=== PATIENT | male | born 1955 | race Caucasian/White ===

== ENCOUNTER 2018-02-11 05:51 | Emergency (ER) | payer BC ==
[~2018-02-11] VITALS: Ht 180.3 cm; Wt 83.9 kg
[2018-02-11 06:38] LABS: BASOPHILS # (AUTO) 0.1 (0.0-0.1); BASOPHILS % 1.1 % (0.0-1.0); EOSINOPHILS # (AUTO) 0.4 (0.0-0.4); EOSINOPHILS % 7.4 % (0.0-6.0); HEMATOCRIT 34.5 % (38.2-49.6); HEMOGLOBIN 11.5 g/dL (14.0-18.0); LYMPHOCYTES # (AUTO) 1.7 (1.0-3.2); LYMPHOCYTES % 31.1 % (18.0-39.1); MEAN CORPUSCULAR HEMOGLOBIN 29.5 pg (28-32); MEAN CORPUSCULAR HGB CONC 33.3 g/dL (31-35); MEAN CORPUSCULAR VOLUME 88.5 fL (81-99); MONOCYTES # (AUTO) 0.8 (0.2-0.8); MONOCYTES % 14.7 % (4.4-11.3); NEUTROPHILS # (AUTO) 2.5 (2.1-6.9); NEUTROPHILS % 45.3 % (38.7-80.0); PLATELET COUNT 182 x10e3/uL (140-360); RED CELL DISTRIBUTION WIDTH 13.2 % (11.7-14.4)
[2018-02-11 06:48] LABS: BLOOD UREA NITROGEN 23 mg/dL (7-26); BUN/CREATININE RATIO 21 (6-25); CALCIUM 9.3 mg/dL (8.4-10.2); CARBON DIOXIDE 27 mmol/L (22-29); CHLORIDE 107 mmol/L (98-107); CREATININE, SERUM 1.08 mg/dL (0.72-1.25); EST GLOMERULAR FILTRATION RATE > 60 ML/MIN (60-); GLUCOSE 98 mg/dL (74-118); SODIUM 142 mmol/L (136-145)
[2018-02-11 07:03] VITALS: BP 136/74
== END 2018-02-11 07:10 | disposition home or self-care (01) ==
LOC: ER 05:51
DX: E87.5 Hyperkalemia (principal); E11.9 Type 2 diabetes mellitus without complications; I25.10 Atherosclerotic heart disease of native coronary artery without angina pectoris; Z95.5 Presence of coronary angioplasty implant and graft; E78.5 Hyperlipidemia, unspecified
CPT/HCPCS: 36415; 80048; 85025; 93005; 99283

== ENCOUNTER → 2020-04-28 | Day surgery (SDC) | payer BC, OTHER ==
[2020-04-25 11:40] LABS: BASOPHILS # (AUTO) 0.1 (0.0-0.1); BASOPHILS % 0.7 % (0.0-1.0); EOSINOPHILS # (AUTO) 0.1 (0.0-0.4); EOSINOPHILS % 1.5 % (0.0-6.0); HEMATOCRIT 36.2 % (38.2-49.6); HEMOGLOBIN 11.5 g/dL (14.0-18.0); LYMPHOCYTES # (AUTO) 2.2 (1.0-3.2); MEAN CORPUSCULAR HEMOGLOBIN 27.8 pg (28-32); MEAN CORPUSCULAR HGB CONC 31.8 g/dL (31-35); MEAN CORPUSCULAR VOLUME 87.4 fL (81-99); MONOCYTES # (AUTO) 0.8 (0.2-0.8); MONOCYTES % 9.8 % (4.4-11.3); NEUTROPHILS # (AUTO) 5.2 (2.1-6.9); NEUTROPHILS % 61.6 % (38.7-80.0); PLATELET COUNT 177 x10e3/uL (140-360); RED BLOOD COUNT 4.14 x10e6/uL (4.3-5.7); RED CELL DISTRIBUTION WIDTH 14.4 % (11.7-14.4)
[~2020-04-28] MED LIST: ASPIRIN81 MG PO; ATORVASTATIN CA20 MG PO; FENTANYL CITRATE/PF 100MCG/2 ML INJ ONE; HYOSCYAMINE 0.125 MG TAB ONE; KETAMINE HCL INJ 50 MG/ML 10 ML VIAL ONE; LEVEMIR FL100 UNIT/1 SC; LOSARTAN POTASS25 MG PO; METFORMIN HCL500 MG PO; MIDAZOLAM HCL 2 MG/2 ML VIAL ONE; PROPOFOL IV EMULSION 10 MG/ML 20 ML VIAL ONE
[2020-04-28 15:05] VITALS: BP 128/79
--- NOTE | 2020-04-28 16:30 | Operative Report ---
DATE OF PROCEDURE: 04/28/2020 SURGEON: Adrian Atwood MD PROCEDURES: EGD with esophageal dilatation and biopsies, and a colonoscopy with polypectomy note. INDICATIONS FOR EGD: Dysphagia. INDICATIONS FOR COLONOSCOPY: Surveillance colonoscopy, personal history of colon polyps. MEDICATIONS: The patient was done under MAC, please see anesthesiologist's note. PROCEDURE IN DETAIL: With the patient in left lateral decubitus position, a flexible fiberoptic Olympus gastroscope was introduced into the esophagus under direct visualization without any difficulty. There was some patchy erythema noted in distal esophagus. Esophagus was dilated to size 52-Romanian Koch. The scope was then advanced with ease into the stomach and mucosa overlying the antrum and the body revealed some patchy erythema and low-grade to moderate edema, and biopsies were obtained, sent to stain for H. pylori. The pylorus was of normal contour and shape, it was intubated with ease and the scope was advanced all the way to the second portion of the duodenum. Biopsies were obtained from the minute nodule noted in the proximal second portion. The scope was then withdrawn back into the stomach and retroflexed, mucosa overlying the fundus and cardia appeared to be within normal limits. The scope was then straightened out, it was subsequently withdrawn. The patient tolerated the procedure well. IMPRESSION: 1. Mild distal esophagitis. 2. Esophagus dilated to size 52-Romanian Koch. 3. Gastritis, biopsied, biopsies sent to stain for H. pylori. 4. Duodenal nodule, proximal second portion, biopsied. PLAN: 1. Follow up histology. 2. Initiate Protonix 40 mg one p.o. q.a.m. a.c. DESCRIPTION OF PROCEDURE: The patient was then turned around after adequate lubrication of the anal canal, a flexible fiberoptic Olympus colonoscope was inserted into the rectum with ease and advanced all the way to the cecum. An approximately 4 mm sessile polyp was removed per cold snare polypectomy from the cecum. An additional polyp approximately 3 mm was removed per the cold biopsy forceps from the ascending colon. The rest of the ascending, transverse, descending, sigmoid, and rectum appeared to be within normal limits. The exam was suboptimal. The patient was somewhat restless during the procedure. The scope was then retroflexed into the distal rectum. Small internal hemorrhoids were noted, none of which was actively bleeding. The scope was then straightened out, it was subsequently withdrawn. The patient tolerated the procedure well. IMPRESSION: 1. Cecal polyp, cold snared. 2. Ascending colon polyp, cold biopsied. 3. Internal hemorrhoids, none actively bleeding. PLAN: 1. Follow up histology. 2. Initiate high-fiber, low-fat diet. 3. Initiate high-fiber supplement. 4. The patient might benefit from a followup colonoscopy in 3 years. Adrian Atwood MD [facility] [place][id number] cc: Alannah Hayward MD
== END | disposition home or self-care (01) ==
LOC: OR 08:16
PROVIDERS: ATTEND Internal Medicine Gastroenterology
DX: K59.09 Other constipation (principal); D12.0 Benign neoplasm of cecum; D12.2 Benign neoplasm of ascending colon; K29.50 Unspecified chronic gastritis without bleeding; K20.9 Esophagitis, unspecified; K21.9 Gastro-esophageal reflux disease without esophagitis; K31.89 Other diseases of stomach and duodenum; K64.8 Other hemorrhoids; E11.9 Type 2 diabetes mellitus without complications; I11.0 Hypertensive heart disease with heart failure; I50.9 Heart failure, unspecified; Z01.812 Encounter for preprocedural laboratory examination; Z11.59 Encounter for screening for other viral diseases; Z79.84 Long term (current) use of oral hypoglycemic drugs; Z79.82 Long term (current) use of aspirin; Z79.4 Long term (current) use of insulin; Z95.5 Presence of coronary angioplasty implant and graft; Z95.810 Presence of automatic (implantable) cardiac defibrillator; Z87.891 Personal history of nicotine dependence; Z89.429 Acquired absence of other toe(s), unspecified side
CPT/HCPCS: 36415 ×2; 43239; 43450; 45380; 45385; 82948; 85025; 87635; J2250; J2704; J3010; 45378

== ENCOUNTER → 2021-11-20 | Outpatient (CLI) | payer OTHER ==
[~2021-11-20] MED LIST changes: +CEPHALEXIN500 MG PO; -FENTANYL CITRATE/PF 100MCG/2 ML INJ ONE; -HYOSCYAMINE 0.125 MG TAB ONE; -KETAMINE HCL INJ 50 MG/ML 10 ML VIAL ONE; +LANTUS 3ML100 UNITS/ SC; -MIDAZOLAM HCL 2 MG/2 ML VIAL ONE; -PROPOFOL IV EMULSION 10 MG/ML 20 ML VIAL ONE
== END ==
LOC: RAD 13:20
PROVIDERS: ATTEND Internal Medicine
DX: M79.671 Pain in right foot (principal); M86.8X7 Other osteomyelitis, ankle and foot

== ENCOUNTER 2021-11-21 09:43 | Inpatient (IN) | payer BC, OTHER ==
[~2021-11-21] VITALS: Ht 180.3 cm; Wt 83.9 kg
[~2021-11-21 09:43] MED LIST changes: -CEPHALEXIN500 MG PO; -LANTUS 3ML100 UNITS/ SC
[2021-11-21] MEDS ORDERED: SODIUM CHLORIDE 0.9% 1000ML 1,000 ML IV STA (09:50)
[2021-11-21] MEDS ORDERED: Vancomycin IV 1 GM in SODIUM CHLORIDE 0.9% 250ML 250 ML IV STA (09:50)
[2021-11-21] MEDS ORDERED: PIPERACILLIN/TAZOBACTAM 3.375 GM in SODIUM CHLORIDE 0.9% 50ML 50 ML IV STA (09:50)
[2021-11-21 10:26] LABS: BASOPHILS # (AUTO) 0.1 (0.0-0.1); BASOPHILS % 0.9 % (0.0-1.0); EOSINOPHILS # (AUTO) 0.2 (0.0-0.4); EOSINOPHILS % 2.2 % (0.0-6.0); HEMATOCRIT 37.1 % (38.2-49.6); LYMPHOCYTES # (AUTO) 1.8 (1.0-3.2); LYMPHOCYTES % 23.7 % (18.0-39.1); MEAN CORPUSCULAR HEMOGLOBIN 28.7 pg (28-32); MEAN CORPUSCULAR HGB CONC 32.3 g/dL (31-35); MEAN CORPUSCULAR VOLUME 88.8 fL (81-99); MONOCYTES # (AUTO) 0.8 (0.2-0.8); MONOCYTES % 9.8 % (4.4-11.3); NEUTROPHILS # (AUTO) 4.9 (2.1-6.9); PLATELET COUNT 292 x10e3/uL (140-360); RED BLOOD COUNT 4.18 x10e6/uL (4.3-5.7); RED CELL DISTRIBUTION WIDTH 12.9 % (11.7-14.4)
[2021-11-21] MEDS ORDERED: CEPHALEXIN500 MG PO (10:32)
[2021-11-21] MEDS ORDERED: LANTUS 3ML100 UNITS/ SC (10:33)
[2021-11-21 10:41] LABS: INR 0.89; PROTHROMBIN TIME 12.7 seconds (11.9-14.5)
[2021-11-21 10:42] LABS: PARTIAL THROMBOPLASTIN TIME 28.6 seconds (23.8-35.5)
[2021-11-21] MEDS ORDERED: LEVEMIR FL100 UNIT/1 SC (10:42)
[2021-11-21 10:47] LABS: ALBUMIN 3.8 g/dL (3.5-5.0); ALBUMIN/GLOBULIN RATIO 0.9 (0.8-2.0); ANION GAP 13.5 mmol/L (8-16); CALCIUM 10.2 mg/dL (8.4-10.2); CREATININE, SERUM 0.99 mg/dL (0.72-1.25); POTASSIUM 4.5 mmol/L (3.5-5.1)
[2021-11-21] MEDS ORDERED: ACETAMINOPHEN 325 MG TAB PO PRN (11:00)
[2021-11-21] MEDS ORDERED: ONDANSETRON HCL INJ 2MG/ML 2ML 2 MG/ML VIAL IV PRN (11:00)
[2021-11-21] MEDS ORDERED: SODIUM CHLORIDE 0.9% 1000ML 1,000 ML IV SCH (11:00)
[2021-11-21] MEDS ORDERED: DEXTROSE 50% SYRINGE 50 ML IV PRN ×4 (16:00)
[2021-11-21] MEDS ORDERED: LOSARTAN POTASSIUM 25 MG TAB PO SCH ×3 (16:00→21:00)
[2021-11-21] MEDS ORDERED: CLONIDINE HCL 0.1 MG TAB PO PRN ×4 (16:00)
[2021-11-21] MEDS: INSULIN LISPRO 100 UNIT/1 ML 3ML VIAL SQ SCH ×2 (16:23→21:24)
[2021-11-21] MEDS: LOSARTAN POTASSIUM 25 MG TAB PO SCH ×2 (16:27→21:22)
[2021-11-21] MEDS: CLINDAMYCIN PHOS 900MG/ 50ML 50 ML IV SCH (16:27)
[2021-11-21] MEDS ORDERED: INSULIN LISPRO 100 UNIT/1 ML 3ML VIAL SQ SCH ×3 (16:30)
[2021-11-21] MEDS ORDERED: LIDOCAINE HCL 1% LOCAL INJ 20 ML VIAL INJ ONE (18:35)
[2021-11-21 18:50] VITALS: BP 202/112
[2021-11-21 20:00] VITALS: BP 138/80
[2021-11-21 20:55] VITALS: BP 138/80
[2021-11-21] MEDS ORDERED: ASPIRIN 81 MG CHEW TAB PO SCH ×3 (21:00)
[2021-11-21] MEDS: MUPIROCIN 2% OINT 22 GM TUBE TOP SCH (21:21)
[2021-11-21] MEDS: ASPIRIN 81 MG CHEW TAB PO SCH (21:22)
[2021-11-22] VITALS (8 sets, daily range): BP systolic 129–156; BP diastolic 67–89
[2021-11-22] MEDS: CLINDAMYCIN PHOS 900MG/ 50ML 50 ML IV SCH ×3 (02:11→17:05)
[2021-11-22] MEDS ORDERED: LIDOCAINE HCL 1% LOCAL INJ 20 ML VIAL INJ ONE (08:00)
[2021-11-22] MEDS: INSULIN LISPRO 100 UNIT/1 ML 3ML VIAL SQ SCH ×4 (08:20→22:06)
[2021-11-22] MEDS: MUPIROCIN 2% OINT 22 GM TUBE TOP SCH (08:35)
[2021-11-22] MEDS: ATORVASTATIN 20 MG TAB PO SCH (08:37)
[2021-11-22] MEDS ORDERED: ATORVASTATIN 20 MG TAB PO SCH ×3 (09:00)
[2021-11-22] MEDS: ASPIRIN 81 MG CHEW TAB PO SCH (21:51)
[2021-11-22] MEDS: LOSARTAN POTASSIUM 25 MG TAB PO SCH (21:51)
[2021-11-23] VITALS (7 sets, daily range): BP systolic 126–179; BP diastolic 70–94
[2021-11-23] MEDS: CLINDAMYCIN PHOS 900MG/ 50ML 50 ML IV SCH ×3 (02:24→16:51)
[2021-11-23 05:07] LABS: HEMOGLOBIN 11.3 g/dL (14.0-18.0); MEAN CORPUSCULAR HEMOGLOBIN 27.9 pg (28-32); MEAN CORPUSCULAR HGB CONC 30.5 g/dL (31-35); MEAN CORPUSCULAR VOLUME 91.4 fL (81-99); PLATELET COUNT 270 x10e3/uL (140-360); RED BLOOD COUNT 4.05 x10e6/uL (4.3-5.7); RED CELL DISTRIBUTION WIDTH 12.9 % (11.7-14.4)
[2021-11-23 05:59] LABS: ANION GAP 13.2 mmol/L (8-16); CALCIUM 9.2 mg/dL (8.4-10.2); CREATININE, SERUM 1.16 mg/dL (0.72-1.25); POTASSIUM 4.2 mmol/L (3.5-5.1)
[2021-11-23] MEDS: ATORVASTATIN 20 MG TAB PO SCH (09:12)
[2021-11-23] MEDS: MUPIROCIN 2% OINT 22 GM TUBE TOP SCH (09:13)
[2021-11-23] MEDS: INSULIN LISPRO 100 UNIT/1 ML 3ML VIAL SQ SCH ×4 (10:00→21:00)
[2021-11-23 12:04] LABS: EOSINOPHILS % (MANUAL) 1 % (0-7); LYMPHOCYTES % (MANUAL) 22 % (19-48); MONOCYTES % (MANUAL) 8 % (3.4-9.0); NEUTROPHILS % (MANUAL) 67 % (40-74)
[2021-11-23 12:05] LABS: PLATELET ESTIMATE ADEQUATE; PLATELET MORPHOLOGY COMMENT NORMAL; RBC MORPHOLOGY COMMENT NORMAL
[2021-11-23] MEDS ORDERED: LACTULOSE SYRUP 20 GM/30 ML UDC PO PRN (15:30)
[2021-11-23] MEDS: ASPIRIN 81 MG CHEW TAB PO SCH (21:00)
[2021-11-23] MEDS: LOSARTAN POTASSIUM 25 MG TAB PO SCH (21:00)
[2021-11-24] VITALS (8 sets, daily range): BP systolic 118–156; BP diastolic 75–96
[2021-11-24] MEDS: CLINDAMYCIN PHOS 900MG/ 50ML 50 ML IV SCH ×3 (02:05→21:48)
[2021-11-24 07:02] LABS: HEMATOCRIT 36.3 % (38.2-49.6); HEMOGLOBIN 11.5 g/dL (14.0-18.0); MEAN CORPUSCULAR HEMOGLOBIN 28.2 pg (28-32); MEAN CORPUSCULAR HGB CONC 31.7 g/dL (31-35); PLATELET COUNT 270 x10e3/uL (140-360); RED BLOOD COUNT 4.08 x10e6/uL (4.3-5.7); RED CELL DISTRIBUTION WIDTH 12.9 % (11.7-14.4)
[2021-11-24 07:23] LABS: ANION GAP 14.3 mmol/L (8-16); CALCIUM 9.1 mg/dL (8.4-10.2); CREATININE, SERUM 1.05 mg/dL (0.72-1.25); POTASSIUM 4.3 mmol/L (3.5-5.1)
[2021-11-24] MEDS: MUPIROCIN 2% OINT 22 GM TUBE TOP SCH (08:26)
[2021-11-24] MEDS: ATORVASTATIN 20 MG TAB PO SCH (08:26)
[2021-11-24] MEDS: INSULIN LISPRO 100 UNIT/1 ML 3ML VIAL SQ SCH ×4 (08:45→21:54)
[2021-11-24] MEDS: DOCUSATE SODIUM 100 MG CAP PO SCH (12:00)
[2021-11-24] MEDS: SENNOSIDES 8.6 MG TAB PO SCH (12:00)
[2021-11-24] MEDS: POLYETHYLENE GLYCOL 3350 17 GM PACK PO SCH ×2 (12:00→16:44)
[2021-11-24] MEDS ORDERED: LOSARTAN POTASSIUM 100 MG TAB PO SCH (21:00)
[2021-11-24] MEDS: ASPIRIN 81 MG CHEW TAB PO SCH (21:48)
[2021-11-24] MEDS: INSULIN GLARGINE 100 UNITS/ML VIAL SQ SCH (21:53)
[2021-11-25] VITALS (8 sets, daily range): BP systolic 119–147; BP diastolic 68–98
[2021-11-25] MEDS: CLINDAMYCIN PHOS 900MG/ 50ML 50 ML IV SCH ×3 (01:57→17:13)
[2021-11-25 06:24] LABS: BASOPHILS # (AUTO) 0.1 (0.0-0.1); BASOPHILS % 1.1 % (0.0-1.0); EOSINOPHILS # (AUTO) 0.2 (0.0-0.4); EOSINOPHILS % 3.2 % (0.0-6.0); HEMATOCRIT 37.1 % (38.2-49.6); HEMOGLOBIN 11.5 g/dL (14.0-18.0); LYMPHOCYTES # (AUTO) 1.9 (1.0-3.2); LYMPHOCYTES % 29.2 % (18.0-39.1); MEAN CORPUSCULAR HEMOGLOBIN 28.1 pg (28-32); MEAN CORPUSCULAR VOLUME 90.7 fL (81-99); MONOCYTES # (AUTO) 0.8 (0.2-0.8); MONOCYTES % 12.3 % (4.4-11.3); NEUTROPHILS # (AUTO) 3.4 (2.1-6.9); NEUTROPHILS % 53.9 % (38.7-80.0); PLATELET COUNT 280 x10e3/uL (140-360); RED BLOOD COUNT 4.09 x10e6/uL (4.3-5.7)
[2021-11-25 06:48] LABS: ANION GAP 12.3 mmol/L (8-16); CALCIUM 9.8 mg/dL (8.4-10.2); CREATININE, SERUM 1.09 mg/dL (0.72-1.25); POTASSIUM 4.3 mmol/L (3.5-5.1)
[2021-11-25] MEDS: INSULIN LISPRO 100 UNIT/1 ML 3ML VIAL SQ SCH ×4 (07:30→20:41)
[2021-11-25] MEDS: MUPIROCIN 2% OINT 22 GM TUBE TOP SCH (09:00)
[2021-11-25] MEDS: SENNOSIDES 8.6 MG TAB PO SCH (09:00)
[2021-11-25] MEDS: DOCUSATE SODIUM 100 MG CAP PO SCH (09:00)
[2021-11-25] MEDS: ATORVASTATIN 20 MG TAB PO SCH (09:00)
[2021-11-25] MEDS: POLYETHYLENE GLYCOL 3350 17 GM PACK PO SCH ×2 (09:00→17:07)
[2021-11-25] MEDS ORDERED: BISACODYL 10 MG SUPP PR NR (15:30)
[2021-11-25] MEDS ORDERED: BISACODYL 10 MG SUPP PR ONE (19:06)
[2021-11-25] MEDS: LOSARTAN POTASSIUM 25 MG TAB PO SCH (20:41)
[2021-11-25] MEDS: ASPIRIN 81 MG CHEW TAB PO SCH (20:41)
[2021-11-25] MEDS: INSULIN GLARGINE 100 UNITS/ML VIAL SQ SCH (20:41)
[2021-11-26 00:47] VITALS: BP 125/76
[2021-11-26] MEDS: CLINDAMYCIN PHOS 900MG/ 50ML 50 ML IV SCH ×3 (01:55→17:43)
[2021-11-26 05:07] VITALS: BP 130/78
[2021-11-26 06:12] LABS: CALCIUM 9.9 mg/dL (8.4-10.2); CREATININE, SERUM 1.17 mg/dL (0.72-1.25)
[2021-11-26 06:50] LABS: BASOPHILS # (AUTO) 0.1 (0.0-0.1); BASOPHILS % 1.2 % (0.0-1.0); EOSINOPHILS # (AUTO) 0.2 (0.0-0.4); EOSINOPHILS % 2.9 % (0.0-6.0); HEMATOCRIT 42.6 % (38.2-49.6); HEMOGLOBIN 13.4 g/dL (14.0-18.0); LYMPHOCYTES # (AUTO) 1.9 (1.0-3.2); LYMPHOCYTES % 27.1 % (18.0-39.1); MEAN CORPUSCULAR HEMOGLOBIN 27.9 pg (28-32); MEAN CORPUSCULAR HGB CONC 31.5 g/dL (31-35); MEAN CORPUSCULAR VOLUME 88.8 fL (81-99); MONOCYTES # (AUTO) 0.8 (0.2-0.8); MONOCYTES % 11.1 % (4.4-11.3); NEUTROPHILS # (AUTO) 3.9 (2.1-6.9); NEUTROPHILS % 57.3 % (38.7-80.0); PLATELET COUNT 313 x10e3/uL (140-360); RED CELL DISTRIBUTION WIDTH 13.1 % (11.7-14.4)
[2021-11-26] MEDS: INSULIN LISPRO 100 UNIT/1 ML 3ML VIAL SQ SCH ×4 (07:30→21:56)
[2021-11-26 08:00] VITALS: BP 137/86
[2021-11-26] MEDS: POLYETHYLENE GLYCOL 3350 17 GM PACK PO SCH ×2 (09:00→16:37)
[2021-11-26] MEDS: MUPIROCIN 2% OINT 22 GM TUBE TOP SCH (09:00)
[2021-11-26] MEDS: SENNOSIDES 8.6 MG TAB PO SCH (09:00)
[2021-11-26] MEDS: DOCUSATE SODIUM 100 MG CAP PO SCH (09:00)
[2021-11-26] MEDS: ATORVASTATIN 20 MG TAB PO SCH (09:00)
[2021-11-26 16:00] VITALS: BP 130/80
[2021-11-26 20:40] VITALS: BP 149/99
[2021-11-26 20:50] VITALS: BP 149/99
[2021-11-26] MEDS: LOSARTAN POTASSIUM 25 MG TAB PO SCH (21:55)
[2021-11-26] MEDS: ASPIRIN 81 MG CHEW TAB PO SCH (21:55)
[2021-11-26] MEDS: INSULIN GLARGINE 100 UNITS/ML VIAL SQ SCH (21:56)
[2021-11-27] VITALS (9 sets, daily range): BP systolic 98–145; BP diastolic 51–95
[2021-11-27] MEDS: CLINDAMYCIN PHOS 900MG/ 50ML 50 ML IV SCH ×3 (01:17→17:41)
[2021-11-27 05:07] LABS: HEMATOCRIT 37.1 % (38.2-49.6); HEMOGLOBIN 11.5 g/dL (14.0-18.0); MEAN CORPUSCULAR VOLUME 90.3 fL (81-99); PLATELET COUNT 271 x10e3/uL (140-360); RED BLOOD COUNT 4.11 x10e6/uL (4.3-5.7); RED CELL DISTRIBUTION WIDTH 13.1 % (11.7-14.4)
[2021-11-27 05:27] LABS: ANION GAP 14.7 mmol/L (8-16); CALCIUM 9.4 mg/dL (8.4-10.2); CREATININE, SERUM 1.26 mg/dL (0.72-1.25); POTASSIUM 4.7 mmol/L (3.5-5.1)
[2021-11-27 07:25] LABS: EOSINOPHILS % (MANUAL) 2 % (0-7); LYMPHOCYTES % (MANUAL) 37 % (19-48); MONOCYTES % (MANUAL) 5 % (3.4-9.0); NEUTROPHILS % (MANUAL) 52 % (40-74)
[2021-11-27 07:26] LABS: PLATELET ESTIMATE ADEQUATE; PLATELET MORPHOLOGY COMMENT NORMAL; RBC MORPHOLOGY COMMENT NORMAL
[2021-11-27] MEDS: INSULIN LISPRO 100 UNIT/1 ML 3ML VIAL SQ SCH ×4 (07:30→20:57)
[2021-11-27] MEDS: SENNOSIDES 8.6 MG TAB PO SCH (08:20)
[2021-11-27] MEDS: DOCUSATE SODIUM 100 MG CAP PO SCH (08:20)
[2021-11-27] MEDS: ATORVASTATIN 20 MG TAB PO SCH (08:20)
[2021-11-27] MEDS: POLYETHYLENE GLYCOL 3350 17 GM PACK PO SCH ×2 (08:20→17:00)
[2021-11-27] MEDS: MUPIROCIN 2% OINT 22 GM TUBE TOP SCH (14:22)
[2021-11-27] MEDS: ASPIRIN 81 MG CHEW TAB PO SCH (20:56)
[2021-11-27] MEDS: LOSARTAN POTASSIUM 25 MG TAB PO SCH (20:57)
[2021-11-27] MEDS: INSULIN GLARGINE 100 UNITS/ML VIAL SQ SCH (20:58)
[2021-11-28] VITALS (7 sets, daily range): BP systolic 115–145; BP diastolic 73–88
[2021-11-28] MEDS: CLINDAMYCIN PHOS 900MG/ 50ML 50 ML IV SCH ×3 (01:21→16:49)
[2021-11-28] MEDS: INSULIN LISPRO 100 UNIT/1 ML 3ML VIAL SQ SCH ×4 (07:30→20:38)
[2021-11-28] MEDS: DOCUSATE SODIUM 100 MG CAP PO SCH (08:39)
[2021-11-28] MEDS: ATORVASTATIN 20 MG TAB PO SCH (08:39)
[2021-11-28] MEDS: SENNOSIDES 8.6 MG TAB PO SCH (08:39)
[2021-11-28] MEDS: POLYETHYLENE GLYCOL 3350 17 GM PACK PO SCH ×2 (08:39→16:41)
[2021-11-28] MEDS: MUPIROCIN 2% OINT 22 GM TUBE TOP SCH (08:40)
[2021-11-28] MEDS ORDERED: ONDANSETRON HCL 4 MG ORAL DISINTEGRATING TAB PO PRN (13:45)
[2021-11-28] MEDS: LOSARTAN POTASSIUM 25 MG TAB PO SCH (20:28)
[2021-11-28] MEDS: ASPIRIN 81 MG CHEW TAB PO SCH (20:28)
[2021-11-28] MEDS: INSULIN GLARGINE 100 UNITS/ML VIAL SQ SCH (20:28)
[2021-11-29] VITALS: BP 150/88
[2021-11-29] MEDS: CLINDAMYCIN PHOS 900MG/ 50ML 50 ML IV SCH ×2 (01:41→12:22)
[2021-11-29 04:15] VITALS: BP 130/75
[2021-11-29] MEDS: INSULIN LISPRO 100 UNIT/1 ML 3ML VIAL SQ SCH ×2 (07:30→11:30)
[2021-11-29] MEDS: POLYETHYLENE GLYCOL 3350 17 GM PACK PO SCH (07:43)
[2021-11-29 08:09] VITALS: BP 95/65
[2021-11-29 08:52] VITALS: BP 95/65
[2021-11-29] MEDS ORDERED: SODIUM CHLORIDE 0.9% 250ML 250 ML ONE (09:56)
[2021-11-29] MEDS ORDERED: LIDOCAINE HCL 1% LOCAL INJ 20 ML VIAL ONE (09:56)
[2021-11-29] MEDS ORDERED: FENTANYL CITRATE/PF 100MCG/2 ML INJ ONE (10:25)
[2021-11-29] MEDS ORDERED: MIDAZOLAM HCL 2 MG/2 ML VIAL ONE (10:25)
[2021-11-29 12:17] VITALS: BP 134/85
[2021-11-29] MEDS: DOCUSATE SODIUM 100 MG CAP PO SCH (12:21)
[2021-11-29] MEDS: ATORVASTATIN 20 MG TAB PO SCH (12:22)
[2021-11-29] MEDS: SENNOSIDES 8.6 MG TAB PO SCH (12:22)
== END 2021-11-29 14:49 | disposition home or self-care (01) | DRG 623 ==
LOC: ER 09:49 → ERHOLD 10:55 → MED/SURG2 14:26
PROVIDERS: ADMIT Internal Medicine; ATTEND Internal Medicine
PROC: 0QBL0ZZ Excision of Right Tarsal, Open Approach (ICD-10-PCS; 2021-11-22)
PROC: 0JBQ0ZZ Excision of Right Foot Subcutaneous Tissue and Fascia, Open Approach (ICD-10-PCS; 2021-11-24)
PROC: 0JBQ0ZZ Excision of Right Foot Subcutaneous Tissue and Fascia, Open Approach (ICD-10-PCS; principal; 2021-11-26)
PROC: 02HV33Z Insertion of Infusion Device into Superior Vena Cava, Percutaneous Approach (ICD-10-PCS; 2021-11-29)
PROC: 0JH63XZ Insertion of Tunneled Vascular Access Device into Chest Subcutaneous Tissue and Fascia, Percutaneous Approach (ICD-10-PCS; 2021-11-29)
DX: E11.69 Type 2 diabetes mellitus with other specified complication (principal); M86.8X7 Other osteomyelitis, ankle and foot; L03.115 Cellulitis of right lower limb; L97.516 Non-pressure chronic ulcer of other part of right foot with bone involvement without evidence of necrosis; M00.871 Arthritis due to other bacteria, right ankle and foot; Z79.899 Other long term (current) drug therapy; E11.40 Type 2 diabetes mellitus with diabetic neuropathy, unspecified; I10 Essential (primary) hypertension; E11.65 Type 2 diabetes mellitus with hyperglycemia; E11.628 Type 2 diabetes mellitus with other skin complications; I25.10 Atherosclerotic heart disease of native coronary artery without angina pectoris; E78.5 Hyperlipidemia, unspecified; Z20.822 Contact with and (suspected) exposure to COVID-19; E11.621 Type 2 diabetes mellitus with foot ulcer; B95.61 Methicillin susceptible Staphylococcus aureus infection as the cause of diseases classified elsewhere; B96.89 Other specified bacterial agents as the cause of diseases classified elsewhere; E11.51 Type 2 diabetes mellitus with diabetic peripheral angiopathy without gangrene
CPT/HCPCS: 36415; 36558; 36569; 71045; 74470; 76937; 77001; 80048; 80053; 82948; 83036; 83735; 85007; 85025; 85027; 85610; 85730; 86850; 86900; 87040; 87071; 87075; 87205; 94799; 96372; 99152; 99153; 99284; J1815; J2001; J2250; J2543; J3010; J3370; J7030; J7050; U0002

== ENCOUNTER → 2022-02-01 | Outpatient (CLI) | payer OTHER ==
[~2022-02-01] MED LIST changes: +CEPHALEXIN500 MG PO; +LANTUS 3ML100 UNITS/ SC
== END ==
LOC: DX 12:56
PROVIDERS: ATTEND Internal Medicine Infectious Disease
DX: M86.171 Other acute osteomyelitis, right ankle and foot (principal)
CPT/HCPCS: 36589; 71045

== ENCOUNTER → 2023-01-27 | Day surgery (SDC) | payer OTHER ==
[2023-01-23 16:10] LABS: BASOPHILS % 0.4 % (0.0-1.0); EOSINOPHILS # (AUTO) 0.1 (0.0-0.4); EOSINOPHILS % 1.9 % (0.0-6.0); HEMATOCRIT 33.9 % (38.2-49.6); LYMPHOCYTES # (AUTO) 1.5 (1.0-3.2); MEAN CORPUSCULAR HEMOGLOBIN 29.8 pg (28-32); MEAN CORPUSCULAR HGB CONC 32.4 g/dL (31-35); MEAN CORPUSCULAR VOLUME 91.9 fL (81-99); MONOCYTES % 14.5 % (4.4-11.3); NEUTROPHILS % 59.9 % (38.7-80.0); PLATELET COUNT 200 x10e3/uL (140-360); RED BLOOD COUNT 3.69 x10e6/uL (4.3-5.7); RED CELL DISTRIBUTION WIDTH 13.3 % (11.7-14.4)
[~2023-01-27] MED LIST changes: +COREG12.5 MG PO; +FENTANYL CITRATE/PF 100MCG/2 ML INJ ONE; +HYOSCYAMINE SULFATE 0.5 MG/ML INJ ONE; +LACTATED RINGER'S 1,000 ML ONE; +METOCLOPRAMIDE HCL 10 MG/2ML VIAL ONE; +MIDAZOLAM HCL 2 MG/2 ML VIAL ONE; +PROPOFOL IV EMULSION 10 MG/ML 20 ML VIAL ONE
[2023-01-27 15:30] VITALS: BP 113/70
== END | disposition home or self-care (01) ==
LOC: OR 12:28
PROVIDERS: ATTEND Internal Medicine Gastroenterology
DX: D64.89 Other specified anemias (principal); K63.5 Polyp of colon; K29.50 Unspecified chronic gastritis without bleeding; B96.81 Helicobacter pylori [H. pylori] as the cause of diseases classified elsewhere; K26.9 Duodenal ulcer, unspecified as acute or chronic, without hemorrhage or perforation; K20.90 Esophagitis, unspecified without bleeding; K44.9 Diaphragmatic hernia without obstruction or gangrene; Z71.3 Dietary counseling and surveillance; E11.9 Type 2 diabetes mellitus without complications; E78.00 Pure hypercholesterolemia, unspecified; Z01.810 Encounter for preprocedural cardiovascular examination; Z01.812 Encounter for preprocedural laboratory examination; Z79.84 Long term (current) use of oral hypoglycemic drugs; Z79.4 Long term (current) use of insulin; Z79.82 Long term (current) use of aspirin; Z68.27 Body mass index [BMI] 27.0-27.9, adult; Z86.718 Personal history of other venous thrombosis and embolism
CPT/HCPCS: 36415 ×2; 43239; 43450; 45380; 82948; 85025; 93005; C9113; J1980; J2250; J2704; J2765; J3010; J7121; 45378

== ENCOUNTER → 2023-04-10 | Outpatient (CLI) | payer MEDICARE, OTHER ==
[~2023-04-10] MED LIST changes: -FENTANYL CITRATE/PF 100MCG/2 ML INJ ONE; -HYOSCYAMINE SULFATE 0.5 MG/ML INJ ONE; -LACTATED RINGER'S 1,000 ML ONE; -METOCLOPRAMIDE HCL 10 MG/2ML VIAL ONE; -MIDAZOLAM HCL 2 MG/2 ML VIAL ONE; -PROPOFOL IV EMULSION 10 MG/ML 20 ML VIAL ONE
== END ==
LOC: RAD 14:13
PROVIDERS: ATTEND Internal Medicine
DX: R05.9 Cough, unspecified (principal)
CPT/HCPCS: 71046

== ENCOUNTER 2024-12-09 14:00 | Emergency (ER) | payer MEDICARE, OTHER ==
[~2024-12-09] VITALS: Ht 180.3 cm; Wt 83.9 kg
[2024-12-09] MEDS ORDERED: SODIUM CHLORIDE FLUSH 10 ML SYR IV PRN (14:30)
[2024-12-09 14:35] LABS: BASOPHILS # (AUTO) 0.1 (0.0-0.1); BASOPHILS % 0.4 % (0.0-1.0); EOSINOPHILS # (AUTO) 0.1 (0.0-0.4); EOSINOPHILS % 0.5 % (0.0-6.0); HEMATOCRIT 35.7 % (38.2-49.6); HEMOGLOBIN 10.7 g/dL (14.0-18.0); LYMPHOCYTES # (AUTO) 1.4 (1.0-3.2); LYMPHOCYTES % 11.2 % (18.0-39.1); MEAN CORPUSCULAR HEMOGLOBIN 24.4 pg (28-32); MEAN CORPUSCULAR VOLUME 81.3 fL (81-99); MONOCYTES # (AUTO) 1.2 (0.2-0.8); MONOCYTES % 9.8 % (4.4-11.3); NEUTROPHILS # (AUTO) 9.7 (2.1-6.9); NEUTROPHILS % 77.6 % (38.7-80.0); PLATELET COUNT 228 x10e3/uL (140-360); RED BLOOD COUNT 4.39 x10e6/uL (4.3-5.7); RED CELL DISTRIBUTION WIDTH 18.3 % (11.7-14.4); WHITE BLOOD COUNT 12.46 x10e3/uL (4.8-10.8)
[2024-12-09 14:49] LABS: ALBUMIN 3.6 g/dL (3.5-5.0); ALBUMIN/GLOBULIN RATIO 0.8 (0.8-2.0); ANION GAP 13.9 mmol/L (8-16); BILIRUBIN,TOTAL 0.7 mg/dL (0.2-1.2); CALCIUM 9.7 mg/dL (8.4-10.2); CREATININE, SERUM 1.33 mg/dL (0.72-1.25); POTASSIUM 3.9 mmol/L (3.5-5.1); TOTAL PROTEIN 8.2 g/dL (6.5-8.1)
[2024-12-09 14:54] LABS: TROPONIN I 0.021 ng/mL (0-0.300)
[2024-12-09 17:24] VITALS: PULSE 105; RESP 18; TEMP 97.5; O2SAT 100
== END 2024-12-09 17:25 | disposition home or self-care (01) ==
LOC: ER 14:08
DX: I95.9 Hypotension, unspecified (principal); R42 Dizziness and giddiness; I10 Essential (primary) hypertension; E11.9 Type 2 diabetes mellitus without complications; E78.00 Pure hypercholesterolemia, unspecified; Z95.810 Presence of automatic (implantable) cardiac defibrillator
CPT/HCPCS: 36415; 71045; 80053; 83880; 84484; 85025; 93005; 99284

== ENCOUNTER 2024-12-11 11:08 | Inpatient (IN) | payer MEDICARE, OTHER ==
[~2024-12-11] VITALS: Ht 180.3 cm; Wt 84.7 kg
[2024-12-11 11:40] LABS: BASOPHILS # (AUTO) 0.1 (0.0-0.1); BASOPHILS % 0.4 % (0.0-1.0); HEMATOCRIT 33.1 % (38.2-49.6); HEMOGLOBIN 10.2 g/dL (14.0-18.0); LYMPHOCYTES # (AUTO) 0.5 (1.0-3.2); LYMPHOCYTES % 4.3 % (18.0-39.1); MEAN CORPUSCULAR HEMOGLOBIN 24.4 pg (28-32); MEAN CORPUSCULAR HGB CONC 30.8 g/dL (31-35); MEAN CORPUSCULAR VOLUME 79.2 fL (81-99); MONOCYTES # (AUTO) 0.5 (0.2-0.8); MONOCYTES % 4.2 % (4.4-11.3); NEUTROPHILS # (AUTO) 11.3 (2.1-6.9); NEUTROPHILS % 90.6 % (38.7-80.0); PLATELET COUNT 210 x10e3/uL (140-360); RED BLOOD COUNT 4.18 x10e6/uL (4.3-5.7); RED CELL DISTRIBUTION WIDTH 18.5 % (11.7-14.4); WHITE BLOOD COUNT 12.46 x10e3/uL (4.8-10.8)
[2024-12-11 11:54] LABS: INR 1.02; PARTIAL THROMBOPLASTIN TIME 26.4 seconds (23.8-35.5)
[2024-12-11 12:03] LABS: CORONAVIRUS COVID-19 AG NEGATIVE (NEGATIVE); INFLUENZA A AG NEGATIVE (NEGATIVE); INFLUENZA B AG NEGATIVE (NEGATIVE)
[2024-12-11 12:06] LABS: ALBUMIN 3.5 g/dL (3.5-5.0); ALBUMIN/GLOBULIN RATIO 0.8 (0.8-2.0); ANION GAP 17.8 mmol/L (8-16); BILIRUBIN,TOTAL 0.8 mg/dL (0.2-1.2); CALCIUM 9.4 mg/dL (8.4-10.2); CREATININE, SERUM 1.49 mg/dL (0.72-1.25); POTASSIUM 3.8 mmol/L (3.5-5.1)
[2024-12-11 12:12] LABS: TROPONIN I 0.03 ng/mL (0-0.300)
[2024-12-11] MEDS: ONDANSETRON HCL INJ 2MG/ML 2ML 2 MG/ML VIAL IV STA (12:29)
[2024-12-11] MEDS: SODIUM CHLORIDE 0.9% 1000ML 1,000 ML IV SCH ×2 (12:30→18:41)
[2024-12-11] MEDS: ACETAMINOPHEN 1000 MG/100 ML IV STA (12:30)
[2024-12-11 12:51] LABS: BAND NEUTROPHILS % (MANUAL) 2 %; EOSINOPHILS % (MANUAL) 1 % (0-7); LYMPHOCYTES % (MANUAL) 7 % (19-48); MONOCYTES % (MANUAL) 2 % (3.4-9.0); NEUTROPHILS % (MANUAL) 88 % (40-74); PLATELET ESTIMATE ADEQUATE; PLATELET MORPHOLOGY COMMENT NORMAL
[2024-12-11 13:45] VITALS: PULSE 106; RESP 19; TEMP 99.1
[2024-12-11] MEDS: LACTATED RINGER'S 1,000 ML INJ ONE (14:30)
[2024-12-11 16:22] LABS: CLARITY,URINE HAZY (CLEAR); COLOR,URINE YELLOW (YELLOW); GLUCOSE, URINE >=1000 (NEGATIVE); LEUKOCYTE ESTERASE ,URINE NEGATIVE (NEGATIVE); NITRITE,URINE NEGATIVE (NEGATIVE); PH,URINE 5.5 (5 - 7); PROTEIN,URINE DIPSTICK 2+ (NEGATIVE)
[2024-12-11 16:23] LABS: BACTERIA,URINE FEW /HPF; BILIRUBIN,URINE NEGATIVE (NEGATIVE); EPITHELIAL CELLS,URINE FEW /LPF; KETONES,URINE TRACE (NEGATIVE); RBC,URINE 0-5 /HPF (0-5); URINE UROBILINOGEN 0.2 mg/dL (0.2 - 1); WBC,URINE (MAN) 0-5 /HPF (0-5)
[2024-12-11] MEDS ORDERED: ONDANSETRON HCL INJ 2MG/ML 2ML 2 MG/ML VIAL IV PRN (18:15)
[2024-12-11] MEDS ORDERED: Morphine 2mg Syringe 2 MG/ML SYR IV PRN (18:15)
[2024-12-11] MEDS ORDERED: DEXTROSE 50% SYRINGE 50 ML IV PRN (18:15)
[2024-12-11] MEDS: Doxycycline IV 100 MG in SODIUM CHLORIDE 0.9% 100 ML IV SCH (18:41)
[2024-12-11 20:03] VITALS: BP 173/87; PULSE 147; RESP 20; TEMP 100.9; O2SAT 98
[2024-12-11] MEDS: INSULIN LISPRO 100 UNIT/1 ML 3ML VIAL SQ SCH (21:00)
[2024-12-11 22:34] VITALS: BP 131/56; PULSE 67; RESP 18; TEMP 99.2; O2SAT 100
[2024-12-11 22:45] VITALS: BP 131/56; PULSE 67; RESP 18; TEMP 99.2; O2SAT 98
[2024-12-12] VITALS: BP 120/56; PULSE 113; RESP 20; TEMP 99.1; O2SAT 100
[2024-12-12 04:00] VITALS: BP 131/66; PULSE 93; RESP 20; TEMP 97.7; O2SAT 98
[2024-12-12 05:51] LABS: BASOPHILS # (AUTO) 0.1 (0.0-0.1); BASOPHILS % 0.3 % (0.0-1.0); HEMATOCRIT 27.3 % (38.2-49.6); HEMOGLOBIN 8.5 g/dL (14.0-18.0); LYMPHOCYTES # (AUTO) 1.5 (1.0-3.2); LYMPHOCYTES % 7.5 % (18.0-39.1); MEAN CORPUSCULAR HEMOGLOBIN 24.6 pg (28-32); MEAN CORPUSCULAR HGB CONC 31.1 g/dL (31-35); MEAN CORPUSCULAR VOLUME 79.1 fL (81-99); MONOCYTES % 10.1 % (4.4-11.3); NEUTROPHILS # (AUTO) 16.3 (2.1-6.9); NEUTROPHILS % 81.6 % (38.7-80.0); PLATELET COUNT 177 x10e3/uL (140-360); RED BLOOD COUNT 3.45 x10e6/uL (4.3-5.7); RED CELL DISTRIBUTION WIDTH 18.7 % (11.7-14.4); WHITE BLOOD COUNT 20.04 x10e3/uL (4.8-10.8)
[2024-12-12 06:26] LABS: ALBUMIN 2.5 g/dL (3.5-5.0); ALBUMIN/GLOBULIN RATIO 0.7 (0.8-2.0); ANION GAP 12.6 mmol/L (8-16); BILIRUBIN,TOTAL 0.5 mg/dL (0.2-1.2); CALCIUM 8.4 mg/dL (8.4-10.2); CREATININE, SERUM 1.34 mg/dL (0.72-1.25); POTASSIUM 3.6 mmol/L (3.5-5.1); TOTAL PROTEIN 6.1 g/dL (6.5-8.1)
[2024-12-12 06:48] LABS: TROPONIN I 0.034 ng/mL (0-0.300)
[2024-12-12 08:30] VITALS: BP 158/79; PULSE 100; RESP 18; TEMP 98.1; O2SAT 98
[2024-12-12 10:34] LABS: LYMPHOCYTES % (MANUAL) 11 % (19-48); MONOCYTES % (MANUAL) 13 % (3.4-9.0); NEUTROPHILS % (MANUAL) 76 % (40-74); PLATELET ESTIMATE ADEQUATE; PLATELET MORPHOLOGY COMMENT NORMAL
[2024-12-12 12:29] VITALS: BP 141/73; PULSE 94; RESP 18; TEMP 98.4; O2SAT 96
[2024-12-12] MEDS: LINEZOLID 600 MG/D5W 300ML 300 ML IV SCH (15:33)
[2024-12-12 16:08] VITALS: BP 166/73; PULSE 107; RESP 20; TEMP 98.6; O2SAT 100
[2024-12-12] MEDS: METFORMIN HCL 500 MG TAB PO SCH (16:45)
[2024-12-12] MEDS: CARVEDILOL 12.5 MG TAB PO SCH (16:46)
[2024-12-12] MEDS: FAMOTIDINE 20 MG TAB PO SCH (16:51)
[2024-12-12 20:00] VITALS: BP 164/90; PULSE 101; RESP 20; TEMP 98.9; O2SAT 99
[2024-12-12] MEDS: LOSARTAN POTASSIUM 25 MG TAB PO SCH (20:27)
[2024-12-12] MEDS: INSULIN GLARGINE 100 UNITS/ML VIAL SQ SCH (21:10)
[2024-12-13] VITALS (7 sets, daily range): BP systolic 133–158; BP diastolic 74–84; PULSE 77–88; RESP 17–20; TEMP 98.1–98.6; O2SAT 98–100
[2024-12-13 05:38] LABS: BASOPHILS % 0.2 % (0.0-1.0); EOSINOPHILS # (AUTO) 0.1 (0.0-0.4); EOSINOPHILS % 0.9 % (0.0-6.0); HEMATOCRIT 25.6 % (38.2-49.6); LYMPHOCYTES # (AUTO) 1.5 (1.0-3.2); LYMPHOCYTES % 13.1 % (18.0-39.1); MEAN CORPUSCULAR HEMOGLOBIN 24.2 pg (28-32); MEAN CORPUSCULAR HGB CONC 30.9 g/dL (31-35); MEAN CORPUSCULAR VOLUME 78.3 fL (81-99); MONOCYTES # (AUTO) 1.5 (0.2-0.8); MONOCYTES % 12.8 % (4.4-11.3); NEUTROPHILS # (AUTO) 8.2 (2.1-6.9); NEUTROPHILS % 72.5 % (38.7-80.0); PLATELET COUNT 169 x10e3/uL (140-360); RED BLOOD COUNT 3.27 x10e6/uL (4.3-5.7); RED CELL DISTRIBUTION WIDTH 18.9 % (11.7-14.4); WHITE BLOOD COUNT 11.32 x10e3/uL (4.8-10.8)
[2024-12-13 05:42] LABS: HEMOGLOBIN 7.9 g/dL (14.0-18.0)
[2024-12-13 06:03] LABS: ANION GAP 11.6 mmol/L (8-16); CALCIUM 8.2 mg/dL (8.4-10.2); CREATININE, SERUM 1.39 mg/dL (0.72-1.25); POTASSIUM 3.6 mmol/L (3.5-5.1)
[2024-12-13 06:06] LABS: % IRON SATURATION 8 % (15-50); IRON 19 ug/dL (65-175); TOTAL IRON BINDING CAPACITY 246 ug/dL (261-478); TRANSFERRIN 176 mg/dL (174-364)
[2024-12-13 06:25] LABS: TROPONIN I 0.015 ng/mL (0-0.300)
[2024-12-13 06:42] LABS: FOLATE 10.5 ng/mL (7.0-15.4)
[2024-12-13] MEDS: ATORVASTATIN 20 MG TAB PO SCH (08:15)
[2024-12-13] MEDS: SODIUM FERRIC GLUCONATE COMPLX 125 MG in SODIUM CHLORIDE 0.9% 100 ML IV SCH ×2 (17:15→17:46)
[2024-12-13] MEDS: LOSARTAN POTASSIUM 25 MG TAB PO SCH (17:44)
[2024-12-14] VITALS (8 sets, daily range): BP systolic 160–190; BP diastolic 79–98; PULSE 74–83; RESP 18–20; TEMP 97.1–98.2; O2SAT 96–100
[2024-12-14 05:40] LABS: BASOPHILS % 0.5 % (0.0-1.0); EOSINOPHILS # (AUTO) 0.2 (0.0-0.4); EOSINOPHILS % 2.1 % (0.0-6.0); HEMATOCRIT 29.5 % (38.2-49.6); HEMOGLOBIN 8.8 g/dL (14.0-18.0); LYMPHOCYTES # (AUTO) 1.4 (1.0-3.2); LYMPHOCYTES % 17.4 % (18.0-39.1); MEAN CORPUSCULAR HEMOGLOBIN 24.3 pg (28-32); MEAN CORPUSCULAR HGB CONC 29.8 g/dL (31-35); MEAN CORPUSCULAR VOLUME 81.5 fL (81-99); MONOCYTES # (AUTO) 0.9 (0.2-0.8); MONOCYTES % 10.7 % (4.4-11.3); NEUTROPHILS # (AUTO) 5.5 (2.1-6.9); NEUTROPHILS % 68.7 % (38.7-80.0); PLATELET COUNT 222 x10e3/uL (140-360); RED BLOOD COUNT 3.62 x10e6/uL (4.3-5.7); RED CELL DISTRIBUTION WIDTH 18.7 % (11.7-14.4); WHITE BLOOD COUNT 7.95 x10e3/uL (4.8-10.8)
[2024-12-14 06:19] LABS: ANION GAP 11.7 mmol/L (8-16); CALCIUM 8.6 mg/dL (8.4-10.2); CREATININE, SERUM 1.4 mg/dL (0.72-1.25); POTASSIUM 3.7 mmol/L (3.5-5.1)
[2024-12-14] MEDS: LIDOCAINE HCL 2% LOCAL 20 ML VIAL INJ ONE (16:55)
[2024-12-14] MEDS: BETAMETHASONE DISODIUM PHOS 6 MG/ML VIAL IM ONE (16:55)
[2024-12-14] MEDS: BUPIVACAINE HCL 0.25% 10ML MPF VIAL INJ ONE (16:55)
[2024-12-14] MEDS: LOSARTAN POTASSIUM 100 MG TAB PO SCH (22:37)
[2024-12-15] VITALS: BP 159/80; PULSE 75; RESP 18; TEMP 97.6; O2SAT 97
[2024-12-15 04:44] VITALS: BP 148/83; PULSE 83; RESP 18; TEMP 97.3; O2SAT 97
[2024-12-15 05:40] LABS: BASOPHILS # (AUTO) 0.1 (0.0-0.1); BASOPHILS % 0.6 % (0.0-1.0); EOSINOPHILS # (AUTO) 0.2 (0.0-0.4); EOSINOPHILS % 1.8 % (0.0-6.0); HEMATOCRIT 28.9 % (38.2-49.6); HEMOGLOBIN 8.8 g/dL (14.0-18.0); LYMPHOCYTES # (AUTO) 1.7 (1.0-3.2); LYMPHOCYTES % 19.2 % (18.0-39.1); MEAN CORPUSCULAR HEMOGLOBIN 24.4 pg (28-32); MEAN CORPUSCULAR HGB CONC 30.4 g/dL (31-35); MEAN CORPUSCULAR VOLUME 80.3 fL (81-99); MONOCYTES # (AUTO) 0.7 (0.2-0.8); MONOCYTES % 8.5 % (4.4-11.3); NEUTROPHILS % 69.2 % (38.7-80.0); PLATELET COUNT 259 x10e3/uL (140-360); RED CELL DISTRIBUTION WIDTH 18.5 % (11.7-14.4)
[2024-12-15 06:03] LABS: ANION GAP 11.5 mmol/L (8-16); CALCIUM 8.5 mg/dL (8.4-10.2); CREATININE, SERUM 1.16 mg/dL (0.72-1.25); POTASSIUM 3.5 mmol/L (3.5-5.1)
[2024-12-15 07:56] VITALS: BP 170/88; PULSE 80; RESP 18; TEMP 97.9; O2SAT 99
[2024-12-15 08:00] VITALS: BP 170/88; PULSE 80; RESP 18; TEMP 97.9; O2SAT 99
[2024-12-15] MEDS: LOSARTAN POTASSIUM 100 MG TAB PO SCH (10:28)
[2024-12-15] MEDS: HYDROCHLOROTHIAZIDE 25 MG TAB PO SCH (10:29)
[2024-12-15 11:08] VITALS: BP 168/78; PULSE 85; RESP 18; TEMP 98; O2SAT 98
[2024-12-15] MEDS ORDERED: LOSARTAN-HCTZ1 EAC1 PO (11:15)
[2024-12-15] MEDS ORDERED: DOXYCYCLINE HY100 MG PO (11:15)
[2024-12-15] MEDS ORDERED: CARVEDILOL25 MG PO (11:15)
[2024-12-15] MEDS ORDERED: CIPRO500 MG PO (11:19)
== END 2024-12-15 14:10 | disposition home or self-care (01) | DRG 629 ==
LOC: ER 11:59 → ERHOLD 18:13 → MED/SURG2 19:36
PROVIDERS: ADMIT Internal Medicine; ATTEND Internal Medicine
PROC: 0QBN0ZZ Excision of Right Metatarsal, Open Approach (ICD-10-PCS; principal; 2024-12-14)
DX: E11.69 Type 2 diabetes mellitus with other specified complication (principal); L03.115 Cellulitis of right lower limb; L97.416 Non-pressure chronic ulcer of right heel and midfoot with bone involvement without evidence of necrosis; M86.8X7 Other osteomyelitis, ankle and foot; E86.0 Dehydration; E11.621 Type 2 diabetes mellitus with foot ulcer; E11.51 Type 2 diabetes mellitus with diabetic peripheral angiopathy without gangrene; I70.202 Unspecified atherosclerosis of native arteries of extremities, left leg; I70.234 Atherosclerosis of native arteries of right leg with ulceration of heel and midfoot; E11.40 Type 2 diabetes mellitus with diabetic neuropathy, unspecified; I10 Essential (primary) hypertension; N17.9 Acute kidney failure, unspecified; D50.9 Iron deficiency anemia, unspecified; E78.5 Hyperlipidemia, unspecified; R00.0 Tachycardia, unspecified; Z79.84 Long term (current) use of oral hypoglycemic drugs; Z79.4 Long term (current) use of insulin; Z87.891 Personal history of nicotine dependence; Z89.432 Acquired absence of left foot; Z89.421 Acquired absence of other right toe(s); Z95.810 Presence of automatic (implantable) cardiac defibrillator; Z79.899 Other long term (current) drug therapy
CPT/HCPCS: 36415; 70450; 71045; 80048; 80053; 81001; 82270; 82550; 82607; 82746; 82948; 83036; 83540; 84466; 84484; 85025; 85610; 85730; 87040; 87071; 87086; 87186; 87205; 93005; 93306; 93925; 96372; 99284; J1815; J2003; J2020; J2405; J2470; J2543; J2916; J7030; J7050

== ENCOUNTER 2024-12-20 19:06 | Inpatient (IN) | payer MEDICARE, OTHER ==
[~2024-12-20] VITALS: Ht 180.3 cm; Wt 83.9 kg
[~2024-12-20 19:06] MED LIST changes: +CARVEDILOL25 MG PO; +CIPRO500 MG PO; +DOXYCYCLINE HY100 MG PO; +LOSARTAN-HCTZ1 EAC1 PO
[2024-12-20 19:22] VITALS: TEMP 99.9
[2024-12-20 19:55] LABS: BASOPHILS % 0.1 % (0.0-1.0); HEMATOCRIT 29.5 % (38.2-49.6); HEMOGLOBIN 9.2 g/dL (14.0-18.0); LYMPHOCYTES # (AUTO) 0.7 (1.0-3.2); LYMPHOCYTES % 2.7 % (18.0-39.1); MEAN CORPUSCULAR HEMOGLOBIN 24.1 pg (28-32); MEAN CORPUSCULAR HGB CONC 31.2 g/dL (31-35); MEAN CORPUSCULAR VOLUME 77.4 fL (81-99); MONOCYTES # (AUTO) 0.8 (0.2-0.8); MONOCYTES % 3.5 % (4.4-11.3); NEUTROPHILS # (AUTO) 22.5 (2.1-6.9); NEUTROPHILS % 92.9 % (38.7-80.0); PLATELET COUNT 196 x10e3/uL (140-360); RED BLOOD COUNT 3.81 x10e6/uL (4.3-5.7); RED CELL DISTRIBUTION WIDTH 19.9 % (11.7-14.4); WHITE BLOOD COUNT 24.23 x10e3/uL (4.8-10.8)
[2024-12-20 20:06] LABS: BILIRUBIN,URINE NEGATIVE (NEGATIVE); CLARITY,URINE CLEAR (CLEAR); COLOR,URINE YELLOW (YELLOW); GLUCOSE, URINE 500 (NEGATIVE); KETONES,URINE 2+ (NEGATIVE); LEUKOCYTE ESTERASE ,URINE NEGATIVE (NEGATIVE); NITRITE,URINE NEGATIVE (NEGATIVE); PH,URINE 5.5 (5 - 7); PROTEIN,URINE DIPSTICK >=300 (NEGATIVE); URINE UROBILINOGEN 0.2 mg/dL (0.2 - 1)
[2024-12-20 20:08] LABS: BACTERIA,URINE MODERATE /HPF; EPITHELIAL CELLS,URINE FEW /LPF; RBC,URINE 0-5 /HPF (0-5)
[2024-12-20 20:09] LABS: AMORPHOUS SEDIMENT,URINE FEW
[2024-12-20 20:10] LABS: INR 1.17; PROTHROMBIN TIME 15.6 seconds (11.9-14.5)
[2024-12-20 20:11] LABS: PARTIAL THROMBOPLASTIN TIME 35.5 seconds (23.8-35.5)
[2024-12-20] MEDS: ONDANSETRON HCL INJ 2MG/ML 2ML 2 MG/ML VIAL IV STA (20:16)
[2024-12-20] MEDS ORDERED: PIPERACILLIN/TAZOBACTAM 3.375 GM VIAL ONE (20:18)
[2024-12-20] MEDS ORDERED: SODIUM CHLORIDE 0.9% 100 ML ONE (20:18)
[2024-12-20 20:19] LABS: ALBUMIN 2.7 g/dL (3.5-5.0); ALBUMIN/GLOBULIN RATIO 0.6 (0.8-2.0); ANION GAP 19.1 mmol/L (8-16); BILIRUBIN,TOTAL 0.8 mg/dL (0.2-1.2); CALCIUM 9.8 mg/dL (8.4-10.2); CREATININE, SERUM 1.62 mg/dL (0.72-1.25); POTASSIUM 4.1 mmol/L (3.5-5.1); TOTAL PROTEIN 7.1 g/dL (6.5-8.1)
[2024-12-20 20:21] LABS: INFLUENZA A AG NEGATIVE (NEGATIVE)
[2024-12-20 20:22] LABS: CORONAVIRUS COVID-19 AG NEGATIVE (NEGATIVE); INFLUENZA B AG NEGATIVE (NEGATIVE)
[2024-12-20] MEDS: ACETAMINOPHEN 325 MG TAB PO ONE (20:33)
[2024-12-20] MEDS: SODIUM CHLORIDE 0.9% 1000ML 2,520 ML IV SCH (20:33)
[2024-12-20 22:35] VITALS: PULSE 98; RESP 20
[2024-12-21] VITALS (10 sets, daily range): BP systolic 98–171; BP diastolic 54–106; PULSE 85–129; RESP 18–20; TEMP 97.6–99.4; O2SAT 95–100
[2024-12-21] MEDS: SODIUM CHLORIDE 0.9% 1000ML 1,000 ML IV SCH (00:17)
[2024-12-21 06:23] LABS: BASOPHILS % 0.1 % (0.0-1.0); HEMATOCRIT 27.9 % (38.2-49.6); HEMOGLOBIN 8.7 g/dL (14.0-18.0); LYMPHOCYTES # (AUTO) 0.6 (1.0-3.2); LYMPHOCYTES % 2.5 % (18.0-39.1); MEAN CORPUSCULAR HEMOGLOBIN 24.2 pg (28-32); MEAN CORPUSCULAR HGB CONC 31.2 g/dL (31-35); MEAN CORPUSCULAR VOLUME 77.7 fL (81-99); MONOCYTES # (AUTO) 1.1 (0.2-0.8); MONOCYTES % 4.4 % (4.4-11.3); NEUTROPHILS % 91.9 % (38.7-80.0); PLATELET COUNT 176 x10e3/uL (140-360); RED BLOOD COUNT 3.59 x10e6/uL (4.3-5.7); RED CELL DISTRIBUTION WIDTH 20.1 % (11.7-14.4); WHITE BLOOD COUNT 23.97 x10e3/uL (4.8-10.8)
[2024-12-21 06:53] LABS: ALBUMIN 2.4 g/dL (3.5-5.0); ALBUMIN/GLOBULIN RATIO 0.6 (0.8-2.0); BILIRUBIN,TOTAL 0.6 mg/dL (0.2-1.2); CALCIUM 8.7 mg/dL (8.4-10.2); CREATININE, SERUM 1.38 mg/dL (0.72-1.25); TOTAL PROTEIN 6.2 g/dL (6.5-8.1)
[2024-12-21] MEDS ORDERED: METFORMIN HCL 500 MG TAB PO SCH (09:00)
[2024-12-21] MEDS ORDERED: INSULIN GLARGINE SC SCH (09:00)
[2024-12-21] MEDS ORDERED: INSULIN DETEMIR 15 UNIT SC SCH (09:00)
[2024-12-21] MEDS ORDERED: DOXYCYCLINE HY100 MG (09:05)
[2024-12-21] MEDS ORDERED: ACETAZOLAMIDE500 M1 (09:05)
[2024-12-21] MEDS ORDERED: GABAPENTIN300 MG (09:05)
[2024-12-21] MEDS ORDERED: METFORMIN HCL1000 MG (09:05)
[2024-12-21] MEDS ORDERED: FARXIGA10 MG (09:05)
[2024-12-21] MEDS ORDERED: TAMSULOSIN (09:05)
[2024-12-21] MEDS ORDERED: MOXIFLOXACIN3 ML (09:05)
[2024-12-21] MEDS ORDERED: PANTOPRAZOLE SO40 MG (09:05)
[2024-12-21 09:16] LABS: ANISOCYTOSIS MODERATE; OVALOCYTES FEW; PLATELET ESTIMATE ADEQUATE; PLATELET MORPHOLOGY COMMENT NORMAL; RBC MORPHOLOGY COMMENT ABNORMAL
[2024-12-21 09:18] LABS: HYPOCHROMASIA MODERATE; MICROCYTOSIS MODERATE
[2024-12-21] MEDS ORDERED: DEXTROSE 50% SYRINGE 50 ML IV PRN (09:30)
[2024-12-21] MEDS: ATORVASTATIN 20 MG TAB PO SCH (10:43)
[2024-12-21] MEDS: GABAPENTIN 300 MG CAP PO SCH (10:43)
[2024-12-21] MEDS: ACETAZOLAMIDE PO SCH (10:43)
[2024-12-21] MEDS: CARVEDILOL 12.5 MG TAB PO SCH (10:44)
[2024-12-21] MEDS: LOSARTAN POTASSIUM 100 MG TAB PO SCH (10:44)
[2024-12-21] MEDS: HYDROCHLOROTHIAZIDE 25 MG TAB PO SCH (10:44)
[2024-12-21] MEDS: DOXYCYCLINE HYCLATE TABLET 100 MG TAB PO SCH (10:45)
[2024-12-21] MEDS: PANTOPRAZOLE SOD 40 MG TABEC PO SCH (10:48)
[2024-12-21] MEDS: METFORMIN HCL 500 MG TAB PO SCH (10:53)
[2024-12-21] MEDS: ONDANSETRON HCL INJ 2MG/ML 2ML 2 MG/ML VIAL IV PRN (13:04)
[2024-12-21] MEDS: INSULIN LISPRO 100 UNIT/1 ML 3ML VIAL SQ SCH (13:07)
[2024-12-21] MEDS: SODIUM FERRIC GLUCONATE COMPLX 125 MG in SODIUM CHLORIDE 0.9% 100 ML IV SCH (15:01)
[2024-12-21] MEDS: MOXIFLOXACIN HCL(OPTH) 3 ML BTL OP SCH (19:11)
[2024-12-21] MEDS: TAMSULOSIN HCL 0.4 MG CAP PO SCH (21:10)
[2024-12-21] MEDS: INSULIN GLARGINE 100 UNITS/ML VIAL SQ SCH (21:17)
[2024-12-22] VITALS (8 sets, daily range): BP systolic 104–123; BP diastolic 55–60; PULSE 81–88; RESP 16–20; TEMP 97.5–98.5; O2SAT 95–98
[2024-12-22] MEDS: Morphine 2mg Syringe 2 MG/ML SYR IV PRN (01:17)
[2024-12-22 05:59] LABS: BASOPHILS % 0.2 % (0.0-1.0); EOSINOPHILS % 0.3 % (0.0-6.0); HEMATOCRIT 24.4 % (38.2-49.6); LYMPHOCYTES # (AUTO) 1.1 (1.0-3.2); MEAN CORPUSCULAR HEMOGLOBIN 23.9 pg (28-32); MEAN CORPUSCULAR HGB CONC 30.7 g/dL (31-35); MEAN CORPUSCULAR VOLUME 77.7 fL (81-99); MONOCYTES # (AUTO) 1.2 (0.2-0.8); MONOCYTES % 7.4 % (4.4-11.3); NEUTROPHILS # (AUTO) 13.4 (2.1-6.9); NEUTROPHILS % 83.8 % (38.7-80.0); PLATELET COUNT 164 x10e3/uL (140-360); RED BLOOD COUNT 3.14 x10e6/uL (4.3-5.7); RED CELL DISTRIBUTION WIDTH 20.6 % (11.7-14.4); WHITE BLOOD COUNT 15.95 x10e3/uL (4.8-10.8)
[2024-12-22 06:01] LABS: HEMOGLOBIN 7.5 g/dL (14.0-18.0)
[2024-12-22 06:23] LABS: ANION GAP 10.5 mmol/L (8-16); CALCIUM 8.2 mg/dL (8.4-10.2); CREATININE, SERUM 1.28 mg/dL (0.72-1.25); POTASSIUM 3.5 mmol/L (3.5-5.1)
[2024-12-22] MEDS ORDERED: DOXYCYCLINE HYCLATE TABLET 100 MG TAB PO SCH (16:45)
[2024-12-23] VITALS (8 sets, daily range): BP systolic 104–137; BP diastolic 55–68; PULSE 72–89; RESP 16–18; TEMP 97.4–98.1; O2SAT 93–97
[2024-12-23 06:44] LABS: BASOPHILS % 0.3 % (0.0-1.0); EOSINOPHILS # (AUTO) 0.1 (0.0-0.4); EOSINOPHILS % 0.5 % (0.0-6.0); HEMATOCRIT 25.4 % (38.2-49.6); LYMPHOCYTES # (AUTO) 1.2 (1.0-3.2); LYMPHOCYTES % 10.5 % (18.0-39.1); MEAN CORPUSCULAR HGB CONC 30.7 g/dL (31-35); MEAN CORPUSCULAR VOLUME 78.2 fL (81-99); MONOCYTES # (AUTO) 1.2 (0.2-0.8); MONOCYTES % 11.1 % (4.4-11.3); NEUTROPHILS # (AUTO) 8.4 (2.1-6.9); NEUTROPHILS % 77.1 % (38.7-80.0); PLATELET COUNT 188 x10e3/uL (140-360); RED BLOOD COUNT 3.25 x10e6/uL (4.3-5.7); RED CELL DISTRIBUTION WIDTH 20.9 % (11.7-14.4); WHITE BLOOD COUNT 10.94 x10e3/uL (4.8-10.8)
[2024-12-23 06:50] LABS: HEMOGLOBIN 7.8 g/dL (14.0-18.0)
[2024-12-23 07:19] LABS: ALBUMIN 2.2 g/dL (3.5-5.0); ALBUMIN/GLOBULIN RATIO 0.6 (0.8-2.0); ANION GAP 12.3 mmol/L (8-16); BILIRUBIN,TOTAL 0.4 mg/dL (0.2-1.2); CALCIUM 8.8 mg/dL (8.4-10.2); CREATININE, SERUM 1.5 mg/dL (0.72-1.25); TOTAL PROTEIN 5.9 g/dL (6.5-8.1)
[2024-12-23 07:20] LABS: POTASSIUM 3.3 mmol/L (3.5-5.1)
[2024-12-23] MEDS: METFORMIN HCL 500 MG TAB PO SCH (12:35)
[2024-12-24 06:01] LABS: BASOPHILS % 0.3 % (0.0-1.0); EOSINOPHILS % 0.3 % (0.0-6.0); HEMATOCRIT 28.1 % (38.2-49.6); HEMOGLOBIN 8.6 g/dL (14.0-18.0); LYMPHOCYTES # (AUTO) 1.2 (1.0-3.2); LYMPHOCYTES % 10.1 % (18.0-39.1); MEAN CORPUSCULAR HEMOGLOBIN 23.9 pg (28-32); MEAN CORPUSCULAR HGB CONC 30.6 g/dL (31-35); MEAN CORPUSCULAR VOLUME 78.1 fL (81-99); MONOCYTES # (AUTO) 1.4 (0.2-0.8); MONOCYTES % 12.1 % (4.4-11.3); NEUTROPHILS % 76.6 % (38.7-80.0); PLATELET COUNT 214 x10e3/uL (140-360); RED CELL DISTRIBUTION WIDTH 21.1 % (11.7-14.4); WHITE BLOOD COUNT 11.71 x10e3/uL (4.8-10.8)
[2024-12-24 06:26] LABS: ANION GAP 11.3 mmol/L (8-16); CALCIUM 8.5 mg/dL (8.4-10.2); CREATININE, SERUM 1.46 mg/dL (0.72-1.25); POTASSIUM 3.3 mmol/L (3.5-5.1)
[2024-12-24 08:47] LABS: LYMPHOCYTES % (MANUAL) 6 % (19-48); METAMYELOCYTES % (MANUAL) 1 % (0-0); MONOCYTES % (MANUAL) 5 % (3.4-9.0); NEUTROPHILS % (MANUAL) 85 % (40-74); REACTIVE LYMPHOCYTES 3
[2024-12-24 08:48] LABS: PLATELET ESTIMATE ADEQUATE; PLATELET MORPHOLOGY COMMENT NORMAL; RBC MORPHOLOGY COMMENT NORMAL
[2024-12-24 08:50] VITALS: BP 139/64; PULSE 82; RESP 18; TEMP 99; O2SAT 97
[2024-12-24] MEDS ORDERED: COLLAGENASE 5 GM TUBE TOP SCH (15:15)
[2024-12-24 16:56] VITALS: BP 137/65; PULSE 85; RESP 18; TEMP 99
[2024-12-24 20:05] VITALS: BP 109/62; PULSE 85; RESP 19; TEMP 98.3; O2SAT 100
[2024-12-24 21:00] VITALS: BP 109/62; PULSE 85; RESP 19; TEMP 98.3; O2SAT 100
[2024-12-24] MEDS: POTASSIUM CHLORIDE 10MEQ EA PO ONE (21:45)
[2024-12-25] VITALS (8 sets, daily range): BP systolic 97–151; BP diastolic 43–73; PULSE 77–97; RESP 16–20; TEMP 98.2–99.7; O2SAT 96–100
[2024-12-25 08:07] LABS: BASOPHILS # (AUTO) 0.1 (0.0-0.1); BASOPHILS % 0.5 % (0.0-1.0); EOSINOPHILS # (AUTO) 0.1 (0.0-0.4); EOSINOPHILS % 0.9 % (0.0-6.0); HEMATOCRIT 27.4 % (38.2-49.6); HEMOGLOBIN 8.5 g/dL (14.0-18.0); LYMPHOCYTES # (AUTO) 1.4 (1.0-3.2); LYMPHOCYTES % 11.8 % (18.0-39.1); MEAN CORPUSCULAR HEMOGLOBIN 23.7 pg (28-32); MEAN CORPUSCULAR VOLUME 76.3 fL (81-99); MONOCYTES # (AUTO) 1.6 (0.2-0.8); MONOCYTES % 13.8 % (4.4-11.3); NEUTROPHILS # (AUTO) 8.4 (2.1-6.9); NEUTROPHILS % 71.4 % (38.7-80.0); PLATELET COUNT 246 x10e3/uL (140-360); RED BLOOD COUNT 3.59 x10e6/uL (4.3-5.7); RED CELL DISTRIBUTION WIDTH 21.2 % (11.7-14.4); WHITE BLOOD COUNT 11.73 x10e3/uL (4.8-10.8)
[2024-12-25 08:36] LABS: ANION GAP 12.2 mmol/L (8-16); CALCIUM 8.6 mg/dL (8.4-10.2); CREATININE, SERUM 1.42 mg/dL (0.72-1.25)
[2024-12-25 08:52] LABS: POTASSIUM 3.2 mmol/L (3.5-5.1)
[2024-12-25] MEDS: PRASUGREL 10 MG TAB PO SCH (10:02)
[2024-12-25] MEDS: ACETAMINOPHEN 325 MG TAB PO PRN (10:31)
[2024-12-25] MEDS: POTASSIUM CHLORIDE 20 MEQ TAB CR PO STA (14:50)
[2024-12-25] MEDS ORDERED: SODIUM CHLORIDE 0.9% 100 ML ONE (22:16)
[2024-12-26] VITALS (7 sets, daily range): BP systolic 102–137; BP diastolic 50–75; PULSE 71–88; RESP 16–19; TEMP 97.6–98.9; O2SAT 96–99
[2024-12-26] MEDS ORDERED: POTASSIUM CHLORIDE 20 MEQ TAB CR PO STA (07:58)
[2024-12-27] VITALS (8 sets, daily range): BP systolic 100–155; BP diastolic 46–87; PULSE 76–101; RESP 16–20; TEMP 97–100.1; O2SAT 96–100
[2024-12-27 06:28] LABS: BASOPHILS # (AUTO) 0.1 (0.0-0.1); BASOPHILS % 0.7 % (0.0-1.0); EOSINOPHILS # (AUTO) 0.1 (0.0-0.4); EOSINOPHILS % 0.7 % (0.0-6.0); HEMATOCRIT 26.3 % (38.2-49.6); HEMOGLOBIN 8.1 g/dL (14.0-18.0); LYMPHOCYTES # (AUTO) 1.7 (1.0-3.2); LYMPHOCYTES % 16.4 % (18.0-39.1); MEAN CORPUSCULAR HEMOGLOBIN 24.4 pg (28-32); MEAN CORPUSCULAR HGB CONC 30.8 g/dL (31-35); MEAN CORPUSCULAR VOLUME 79.2 fL (81-99); MONOCYTES # (AUTO) 1.4 (0.2-0.8); MONOCYTES % 13.8 % (4.4-11.3); NEUTROPHILS # (AUTO) 6.9 (2.1-6.9); PLATELET COUNT 303 x10e3/uL (140-360); RED BLOOD COUNT 3.32 x10e6/uL (4.3-5.7); RED CELL DISTRIBUTION WIDTH 21.7 % (11.7-14.4); WHITE BLOOD COUNT 10.23 x10e3/uL (4.8-10.8)
[2024-12-27 07:07] LABS: ANION GAP 11.8 mmol/L (8-16); CALCIUM 8.9 mg/dL (8.4-10.2); CREATININE, SERUM 1.54 mg/dL (0.72-1.25); MAGNESIUM 1.4 MG/DL (1.3-2.1); POTASSIUM 3.8 mmol/L (3.5-5.1)
[2024-12-27] MEDS ORDERED: SODIUM CHLORIDE 0.9% 0 ML ONE (14:31)
[2024-12-28] VITALS (8 sets, daily range): BP systolic 91–120; BP diastolic 50–63; PULSE 64–77; RESP 18–20; TEMP 97.4–99.1; O2SAT 98–100
[2024-12-28] MEDS: SODIUM CHLORIDE 0.9% 1000ML 1,000 ML IV SCH (05:38)
[2024-12-28 06:57] LABS: BASOPHILS # (AUTO) 0.1 (0.0-0.1); BASOPHILS % 0.6 % (0.0-1.0); EOSINOPHILS # (AUTO) 0.1 (0.0-0.4); EOSINOPHILS % 0.8 % (0.0-6.0); HEMATOCRIT 27.4 % (38.2-49.6); HEMOGLOBIN 8.3 g/dL (14.0-18.0); LYMPHOCYTES # (AUTO) 1.7 (1.0-3.2); LYMPHOCYTES % 12.9 % (18.0-39.1); MEAN CORPUSCULAR HEMOGLOBIN 23.9 pg (28-32); MEAN CORPUSCULAR HGB CONC 30.3 g/dL (31-35); MEAN CORPUSCULAR VOLUME 78.7 fL (81-99); MONOCYTES % 7.5 % (4.4-11.3); NEUTROPHILS % 77.4 % (38.7-80.0); PLATELET COUNT 306 x10e3/uL (140-360); RED BLOOD COUNT 3.48 x10e6/uL (4.3-5.7); RED CELL DISTRIBUTION WIDTH 22.2 % (11.7-14.4)
[2024-12-28 07:26] LABS: ANION GAP 13.3 mmol/L (8-16); CALCIUM 8.5 mg/dL (8.4-10.2); CREATININE, SERUM 1.39 mg/dL (0.72-1.25)
[2024-12-28 07:27] LABS: POTASSIUM 3.3 mmol/L (3.5-5.1)
[2024-12-28] MEDS ORDERED: PHENYLEPHRINE HCL 1% 10 MG/ML VIAL ONE (11:29)
[2024-12-28] MEDS ORDERED: LIDOCAINE HCL 2% LOCAL INJ 5 ML SDV VIAL INJ ONE (11:29)
[2024-12-28] MEDS ORDERED: PROPOFOL IV EMULSION 10 MG/ML 20 ML VIAL ONE (11:30)
[2024-12-28] MEDS ORDERED: SODIUM CHLORIDE 0.9% 100 ML ONE (11:30)
[2024-12-28] MEDS ORDERED: MIDAZOLAM HCL 2 MG/2 ML VIAL ONE (11:45)
[2024-12-28] MEDS: BENZOCAINE 20% SPR 60 ML CAN ONE (16:26)
[2024-12-28] MEDS: SODIUM CHLORIDE 0.9% 1000ML 1,000 ML ONE (16:26)
[2024-12-28] MEDS: CEFAZOLIN SODIUM 2 GM in SODIUM CHLORIDE 0.9% 100 ML IV SCH (21:38)
[2024-12-29] VITALS: BP 95/52; PULSE 77; RESP 20; TEMP 98; O2SAT 99
[2024-12-29 04:00] VITALS: BP 123/61; PULSE 79; RESP 20; TEMP 97.9; O2SAT 98
[2024-12-29 06:43] LABS: BASOPHILS # (AUTO) 0.1 (0.0-0.1); BASOPHILS % 0.8 % (0.0-1.0); EOSINOPHILS # (AUTO) 0.1 (0.0-0.4); EOSINOPHILS % 0.8 % (0.0-6.0); HEMATOCRIT 26.8 % (38.2-49.6); HEMOGLOBIN 8.2 g/dL (14.0-18.0); LYMPHOCYTES # (AUTO) 1.8 (1.0-3.2); MEAN CORPUSCULAR HEMOGLOBIN 24.3 pg (28-32); MEAN CORPUSCULAR HGB CONC 30.6 g/dL (31-35); MEAN CORPUSCULAR VOLUME 79.5 fL (81-99); MONOCYTES # (AUTO) 0.9 (0.2-0.8); MONOCYTES % 8.3 % (4.4-11.3); NEUTROPHILS # (AUTO) 8.3 (2.1-6.9); NEUTROPHILS % 73.2 % (38.7-80.0); PLATELET COUNT 279 x10e3/uL (140-360); RED BLOOD COUNT 3.37 x10e6/uL (4.3-5.7); RED CELL DISTRIBUTION WIDTH 22.3 % (11.7-14.4); WHITE BLOOD COUNT 11.26 x10e3/uL (4.8-10.8)
[2024-12-29 07:04] LABS: ANION GAP 13.2 mmol/L (8-16); CALCIUM 8.2 mg/dL (8.4-10.2); CREATININE, SERUM 1.27 mg/dL (0.72-1.25)
[2024-12-29 07:05] LABS: POTASSIUM 3.2 mmol/L (3.5-5.1)
[2024-12-29 08:39] VITALS: BP 121/62; PULSE 73; RESP 18; TEMP 97.9; O2SAT 98
[2024-12-29] MEDS ORDERED: CEFTRIAXON2 GM/50 ML IVP (12:10)
[2024-12-29 12:33] VITALS: BP 96/53; PULSE 74; RESP 18; TEMP 98.2; O2SAT 99
[2024-12-29 15:59] VITALS: BP 113/64; PULSE 81; RESP 18; TEMP 97.9; O2SAT 98
[2024-12-29 16:31] VITALS: BP 113/64; PULSE 81
[2024-12-30] MEDS ORDERED: BENZOCAINE/TETRACAINE/BUTAMBEN AERO SPRAY 56 GM CAN ONE (13:23)
== END 2024-12-29 17:45 | disposition home health service (06) | DRG 872 ==
LOC: ER 20:13 → ERHOLD 23:25 → MED/SURG3 12-21 00:30
PROVIDERS: ADMIT Internal Medicine; ATTEND Internal Medicine
PROC: 3E0333Z Introduction of Anti-inflammatory into Peripheral Vein, Percutaneous Approach (ICD-10-PCS; principal; 2024-12-20)
PROC: 02HV33Z Insertion of Infusion Device into Superior Vena Cava, Percutaneous Approach (ICD-10-PCS; 2024-12-27)
DX: A41.01 Sepsis due to Methicillin susceptible Staphylococcus aureus (principal); E87.20 Acidosis, unspecified; M86.9 Osteomyelitis, unspecified; T82.7XXA Infection and inflammatory reaction due to other cardiac and vascular devices, implants and grafts, initial encounter; I50.22 Chronic systolic (congestive) heart failure; N17.9 Acute kidney failure, unspecified; L97.518 Non-pressure chronic ulcer of other part of right foot with other specified severity; N39.0 Urinary tract infection, site not specified; I11.0 Hypertensive heart disease with heart failure; E11.621 Type 2 diabetes mellitus with foot ulcer; R65.20 Severe sepsis without septic shock; E11.51 Type 2 diabetes mellitus with diabetic peripheral angiopathy without gangrene; E11.69 Type 2 diabetes mellitus with other specified complication; I07.9 Rheumatic tricuspid valve disease, unspecified; D50.9 Iron deficiency anemia, unspecified; E87.6 Hypokalemia; I25.10 Atherosclerotic heart disease of native coronary artery without angina pectoris; E78.49 Other hyperlipidemia; K21.9 Gastro-esophageal reflux disease without esophagitis; R53.81 Other malaise; Z11.52 Encounter for screening for COVID-19; Z79.82 Long term (current) use of aspirin; Z79.4 Long term (current) use of insulin; Z79.84 Long term (current) use of oral hypoglycemic drugs; Z98.61 Coronary angioplasty status; Z95.810 Presence of automatic (implantable) cardiac defibrillator; Z88.1 Allergy status to other antibiotic agents; Y83.1 Surgical operation with implant of artificial internal device as the cause of abnormal reaction of the patient, or of later complication, without mention of misadventure at the time of the procedure
CPT/HCPCS: 36415; 36569; 71045; 74177; 80048; 80053; 81001; 82948; 83036; 83605; 83690; 83735; 85025; 85045; 85610; 85730; 87040; 87071; 87075; 87086; 87186; 87205; 93005; 93306; 93307; 93312; 93320; 93325; 93355; 96372; 99252; 99284; J0295; J0690; J1815; J2003; J2250; J2270; J2371; J2405; J2543; J2916; J7030; J7050

== ENCOUNTER 2025-02-25 13:18 | Inpatient (IN) | payer MEDICARE, OTHER ==
[~2025-02-25] VITALS: Ht 180.3 cm; Wt 84.0 kg
[~2025-02-25 13:18] MED LIST changes: +ACETAZOLAMIDE500 M1; +CEFTRIAXON2 GM/50 ML IVP; +DOXYCYCLINE HY100 MG; +FARXIGA10 MG; +GABAPENTIN300 MG PO; +METFORMIN HCL1000 MG PO; +MOXIFLOXACIN3 ML; +PANTOPRAZOLE SO40 MG PO; +TAMSULOSIN
[2025-02-25 13:54] VITALS: TEMP 98.4
[2025-02-25 14:25] LABS: BASOPHILS # (AUTO) 0.1 (0.0-0.1); BASOPHILS % 0.5 % (0.0-1.0); EOSINOPHILS # (AUTO) 0.2 (0.0-0.4); EOSINOPHILS % 1.8 % (0.0-6.0); HEMATOCRIT 32.4 % (38.2-49.6); HEMOGLOBIN 10.3 g/dL (14.0-18.0); LYMPHOCYTES # (AUTO) 1.7 (1.0-3.2); LYMPHOCYTES % 17.9 % (18.0-39.1); MEAN CORPUSCULAR HEMOGLOBIN 27.2 pg (28-32); MEAN CORPUSCULAR HGB CONC 31.8 g/dL (31-35); MEAN CORPUSCULAR VOLUME 85.7 fL (81-99); MONOCYTES % 10.9 % (4.4-11.3); NEUTROPHILS # (AUTO) 6.3 (2.1-6.9); NEUTROPHILS % 68.6 % (38.7-80.0); PLATELET COUNT 235 x10e3/uL (140-360); RED BLOOD COUNT 3.78 x10e6/uL (4.3-5.7); RED CELL DISTRIBUTION WIDTH 18.3 % (11.7-14.4); WHITE BLOOD COUNT 9.23 x10e3/uL (4.8-10.8)
[2025-02-25 14:38] LABS: INR 0.96; PROTHROMBIN TIME 13.4 seconds (11.9-14.5)
[2025-02-25 14:39] LABS: PARTIAL THROMBOPLASTIN TIME 30.3 seconds (23.8-35.5)
[2025-02-25 14:48] LABS: ALBUMIN/GLOBULIN RATIO 0.6 (0.8-2.0); ANION GAP 15.8 mmol/L (8-16); BILIRUBIN,TOTAL 0.4 mg/dL (0.2-1.2); CREATININE, SERUM 1.44 mg/dL (0.72-1.25); MAGNESIUM 2.2 MG/DL (1.3-2.1); POTASSIUM 4.8 mmol/L (3.5-5.1); TOTAL PROTEIN 7.8 g/dL (6.5-8.1)
[2025-02-25] MEDS: Doxycycline IV 100 MG in SODIUM CHLORIDE 0.9% 100 ML IV SCH (15:20)
[2025-02-25] MEDS ORDERED: Morphine 4mg INJECTION 4 MG/ML INJ IV PRN (18:00)
[2025-02-25] MEDS ORDERED: ONDANSETRON HCL INJ 2MG/ML 2ML 2 MG/ML VIAL IV PRN (18:00)
[2025-02-25 18:35] VITALS: PULSE 90; RESP 16
[2025-02-25] MEDS: SODIUM CHLORIDE 0.9% 1000ML 1,000 ML IV SCH (19:01)
[2025-02-25 19:52] VITALS: BP 147/83; PULSE 105; RESP 20; TEMP 97.8; O2SAT 100
[2025-02-25 20:00] VITALS: BP 147/83; PULSE 105; RESP 20; TEMP 97.8; O2SAT 100
[2025-02-25 20:20] LABS: TROPONIN I 0.003 ng/mL (0-0.300)
[2025-02-25] MEDS ORDERED: CARVEDILOL12.5 MG PO (23:56)
[2025-02-25] MEDS ORDERED: FLUDROCORTISON0.1 MG PO (23:56)
[2025-02-25] MEDS ORDERED: LOSARTAN POTASS25 MG PO (23:56)
[2025-02-26] VITALS (10 sets, daily range): BP systolic 147–179; BP diastolic 74–97; PULSE 82–98; RESP 18–20; TEMP 97–98.6; O2SAT 96–100
[2025-02-26] MEDS ORDERED: SODIUM CHLORIDE 0.9% 100 ML ONE (01:15)
[2025-02-26] MEDS ORDERED: ACETAMINOPHEN 325 MG TAB PO PRN (02:30)
[2025-02-26] MEDS ORDERED: POLYETHYLENE GLYCOL 3350 17 GM PACK PO PRN (02:30)
[2025-02-26 06:13] LABS: ANION GAP 12.3 mmol/L (8-16); CALCIUM 8.6 mg/dL (8.4-10.2); CHOL/HDL RATIO 3.4 (3.9-4.7); CREATININE, SERUM 1.39 mg/dL (0.72-1.25); PHOSPHORUS 3.8 MG/DL (2.3-4.7); POTASSIUM 4.3 mmol/L (3.5-5.1)
[2025-02-26 06:34] LABS: FERRITIN 492.6 ng/mL (21.81-274.66); FREE T4 (FREE THYROXINE) 0.99 ng/dL (0.8-1.8); THYROID STIMULATING HORMONE 1.814 uIU/mL (0.350-4.940)
[2025-02-26] MEDS ORDERED: FAMOTIDINE 20 MG TAB PO SCH (07:30)
[2025-02-26] MEDS: PANTOPRAZOLE SOD 40 MG TABEC PO SCH (08:26)
[2025-02-26] MEDS: DOCUSATE SODIUM 100 MG CAP PO SCH (08:39)
[2025-02-26] MEDS: LOSARTAN POTASSIUM 25 MG TAB PO SCH (08:39)
[2025-02-26] MEDS: METFORMIN HCL 500 MG TAB PO SCH (08:40)
[2025-02-26] MEDS: CARVEDILOL 3.125 MG TAB PO SCH (08:40)
[2025-02-26] MEDS: GABAPENTIN 300 MG CAP PO SCH (08:40)
[2025-02-26] MEDS: FLUDROCORTISONE ACETATE 0.1 MG TAB PO SCH (08:40)
[2025-02-26] MEDS: ATORVASTATIN 20 MG TAB PO SCH (08:41)
[2025-02-26] MEDS: INSULIN GLARGINE 100 UNITS/ML VIAL SC SCH (08:43)
[2025-02-26 09:26] LABS: BASOPHILS # (AUTO) 0.1 (0.0-0.1); EOSINOPHILS # (AUTO) 0.3 (0.0-0.4); HEMATOCRIT 31.9 % (38.2-49.6); HEMOGLOBIN 9.8 g/dL (14.0-18.0); LYMPHOCYTES # (AUTO) 1.3 (1.0-3.2); LYMPHOCYTES % 19.1 % (18.0-39.1); MEAN CORPUSCULAR HEMOGLOBIN 26.8 pg (28-32); MEAN CORPUSCULAR HGB CONC 30.7 g/dL (31-35); MEAN CORPUSCULAR VOLUME 87.2 fL (81-99); MONOCYTES # (AUTO) 0.8 (0.2-0.8); MONOCYTES % 11.7 % (4.4-11.3); NEUTROPHILS # (AUTO) 4.3 (2.1-6.9); NEUTROPHILS % 63.8 % (38.7-80.0); PLATELET COUNT 234 x10e3/uL (140-360); RED BLOOD COUNT 3.66 x10e6/uL (4.3-5.7); RED CELL DISTRIBUTION WIDTH 18.2 % (11.7-14.4); WHITE BLOOD COUNT 6.81 x10e3/uL (4.8-10.8)
[2025-02-26 09:43] LABS: TROPONIN I 0.01 ng/mL (0-0.300)
[2025-02-26] MEDS: IRON SUCROSE 100 MG in SODIUM CHLORIDE 0.9% 100 ML IV SCH (10:12)
[2025-02-26] MEDS: MUPIROCIN 2% OINT 22 GM TUBE TOP SCH (21:25)
[2025-02-27] VITALS (11 sets, daily range): BP systolic 140–181; BP diastolic 66–99; PULSE 81–94; RESP 16–20; TEMP 97–98.3; O2SAT 97–100
[2025-02-27 05:21] LABS: BASOPHILS # (AUTO) 0.1 (0.0-0.1); BASOPHILS % 1.1 % (0.0-1.0); EOSINOPHILS # (AUTO) 0.3 (0.0-0.4); EOSINOPHILS % 3.9 % (0.0-6.0); HEMATOCRIT 32.1 % (38.2-49.6); HEMOGLOBIN 10.1 g/dL (14.0-18.0); LYMPHOCYTES # (AUTO) 1.2 (1.0-3.2); LYMPHOCYTES % 17.3 % (18.0-39.1); MEAN CORPUSCULAR HEMOGLOBIN 27.1 pg (28-32); MEAN CORPUSCULAR HGB CONC 31.5 g/dL (31-35); MEAN CORPUSCULAR VOLUME 86.1 fL (81-99); MONOCYTES # (AUTO) 0.7 (0.2-0.8); MONOCYTES % 9.6 % (4.4-11.3); NEUTROPHILS # (AUTO) 4.8 (2.1-6.9); NEUTROPHILS % 67.8 % (38.7-80.0); PLATELET COUNT 242 x10e3/uL (140-360); RED BLOOD COUNT 3.73 x10e6/uL (4.3-5.7); RED CELL DISTRIBUTION WIDTH 17.7 % (11.7-14.4); WHITE BLOOD COUNT 7.01 x10e3/uL (4.8-10.8)
[2025-02-27 05:48] LABS: ANION GAP 14.7 mmol/L (8-16); CALCIUM 8.6 mg/dL (8.4-10.2); CREATININE, SERUM 1.16 mg/dL (0.72-1.25); MAGNESIUM 1.9 MG/DL (1.3-2.1); POTASSIUM 3.7 mmol/L (3.5-5.1)
[2025-02-27] MEDS: LOSARTAN POTASSIUM 25 MG TAB PO SCH (08:04)
[2025-02-27] MEDS: BETAMETHASONE DISODIUM PHOS 6 MG/ML VIAL IM ONE (11:09)
[2025-02-27] MEDS: LIDOCAINE HCL 1% LOCAL INJ 20 ML VIAL INJ ONE ×2 (11:10→11:45)
[2025-02-27] MEDS: BUPIVACAINE HCL 0.5% 10ML MPF VIAL INJ ONE ×2 (11:10→11:11)
[2025-02-27] MEDS: LOSARTAN POTASSIUM 100 MG TAB PO ONE (14:11)
[2025-02-27] MEDS: LACTATED RINGER'S 1,000 ML INJ ONE (14:11)
[2025-02-28] VITALS (8 sets, daily range): BP systolic 160–194; BP diastolic 83–101; PULSE 76–95; RESP 15–20; TEMP 97.5–98.3; O2SAT 97–100
[2025-02-28 06:16] LABS: ANION GAP 12.8 mmol/L (8-16); CALCIUM 8.7 mg/dL (8.4-10.2); CREATININE, SERUM 1.04 mg/dL (0.72-1.25); POTASSIUM 3.8 mmol/L (3.5-5.1)
[2025-02-28] MEDS: LOSARTAN POTASSIUM 25 MG TAB PO SCH (09:37)
[2025-03-01] VITALS (9 sets, daily range): BP systolic 136–179; BP diastolic 70–96; PULSE 80–95; RESP 16–18; TEMP 97.3–97.6; O2SAT 97–100
[2025-03-01 05:56] LABS: BASOPHILS # (AUTO) 0.1 (0.0-0.1); EOSINOPHILS # (AUTO) 0.2 (0.0-0.4); EOSINOPHILS % 2.7 % (0.0-6.0); HEMATOCRIT 33.9 % (38.2-49.6); HEMOGLOBIN 10.5 g/dL (14.0-18.0); LYMPHOCYTES # (AUTO) 1.8 (1.0-3.2); LYMPHOCYTES % 23.3 % (18.0-39.1); MEAN CORPUSCULAR HEMOGLOBIN 26.9 pg (28-32); MEAN CORPUSCULAR VOLUME 86.7 fL (81-99); MONOCYTES # (AUTO) 0.8 (0.2-0.8); MONOCYTES % 9.9 % (4.4-11.3); NEUTROPHILS # (AUTO) 4.9 (2.1-6.9); NEUTROPHILS % 62.8 % (38.7-80.0); PLATELET COUNT 280 x10e3/uL (140-360); RED BLOOD COUNT 3.91 x10e6/uL (4.3-5.7); RED CELL DISTRIBUTION WIDTH 17.2 % (11.7-14.4); WHITE BLOOD COUNT 7.74 x10e3/uL (4.8-10.8)
[2025-03-01 06:34] LABS: ALBUMIN 2.6 g/dL (3.5-5.0); ALBUMIN/GLOBULIN RATIO 0.7 (0.8-2.0); ANION GAP 12.5 mmol/L (8-16); BILIRUBIN,TOTAL 0.2 mg/dL (0.2-1.2); CREATININE, SERUM 1.02 mg/dL (0.72-1.25); POTASSIUM 3.5 mmol/L (3.5-5.1); TOTAL PROTEIN 6.6 g/dL (6.5-8.1)
[2025-03-01] MEDS: CARVEDILOL 3.125 MG TAB PO SCH (09:20)
[2025-03-01] MEDS: LINEZOLID 600 MG TAB PO SCH (18:43)
[2025-03-02] VITALS: BP 148/75; PULSE 89; RESP 20; TEMP 97.5; O2SAT 99
[2025-03-02 05:23] VITALS: BP 165/83; PULSE 89; RESP 16; TEMP 97.2; O2SAT 98
[2025-03-02 06:34] VITALS: PULSE 78; RESP 22; O2SAT 98
[2025-03-02 07:12] VITALS: BP 164/90; PULSE 78; RESP 17; TEMP 98.1; O2SAT 100
[2025-03-02 09:00] VITALS: BP 164/90; PULSE 78; RESP 17; TEMP 98.1; O2SAT 100
[2025-03-02 11:08] VITALS: BP 170/94; PULSE 94; RESP 16; TEMP 98.2; O2SAT 100
[2025-03-02] MEDS ORDERED: ZYVOX600 MG PO (12:33)
== END 2025-03-02 14:09 | disposition home or self-care (01) | DRG 623 ==
LOC: ER 14:11 → ERHOLD 17:46 → MED/SURG2 20:23
PROVIDERS: ADMIT Internal Medicine; ATTEND Internal Medicine
PROC: 0JBQ0ZZ Excision of Right Foot Subcutaneous Tissue and Fascia, Open Approach (ICD-10-PCS; principal; 2025-02-27)
DX: E11.621 Type 2 diabetes mellitus with foot ulcer (principal); E11.52 Type 2 diabetes mellitus with diabetic peripheral angiopathy with gangrene; I13.0 Hypertensive heart and chronic kidney disease with heart failure and stage 1 through stage 4 chronic kidney disease, or unspecified chronic kidney disease; I50.22 Chronic systolic (congestive) heart failure; L03.115 Cellulitis of right lower limb; L97.518 Non-pressure chronic ulcer of other part of right foot with other specified severity; E11.69 Type 2 diabetes mellitus with other specified complication; M86.171 Other acute osteomyelitis, right ankle and foot; N17.9 Acute kidney failure, unspecified; E83.41 Hypermagnesemia; E11.40 Type 2 diabetes mellitus with diabetic neuropathy, unspecified; E11.22 Type 2 diabetes mellitus with diabetic chronic kidney disease; N18.2 Chronic kidney disease, stage 2 (mild); B95.62 Methicillin resistant Staphylococcus aureus infection as the cause of diseases classified elsewhere; E78.49 Other hyperlipidemia; I25.10 Atherosclerotic heart disease of native coronary artery without angina pectoris; D50.9 Iron deficiency anemia, unspecified; H91.93 Unspecified hearing loss, bilateral; M54.9 Dorsalgia, unspecified; Z79.4 Long term (current) use of insulin; Z79.84 Long term (current) use of oral hypoglycemic drugs; Z89.421 Acquired absence of other right toe(s); Z89.422 Acquired absence of other left toe(s); Z95.810 Presence of automatic (implantable) cardiac defibrillator; Z98.61 Coronary angioplasty status; Z98.62 Peripheral vascular angioplasty status; Z88.1 Allergy status to other antibiotic agents; Z83.3 Family history of diabetes mellitus; Z82.49 Family history of ischemic heart disease and other diseases of the circulatory system; Z87.891 Personal history of nicotine dependence
CPT/HCPCS: 36415; 71045; 80048; 80053; 80061; 82550; 82607; 82728; 82746; 82948; 83540; 83735; 83880; 84100; 84439; 84443; 84466; 84484; 85025; 85045; 85610; 85730; 86140; 87040; 87071; 87075; 87186; 87205; 94799; 99284; J1756; J2003; J2470; J2543; J7030; J7050